=== PATIENT | female | born 1955 | race Caucasian/White ===

== ENCOUNTER 2022-01-24 13:13 | Outpatient (CLI) | payer MEDICARE, BC, SELFPAY ==
--- OUTSIDE RECORDS SUMMARY | 2021-12-21 09:51 | XMS_ITS | Continuity of Care Document ---
:1955 Author Care Team Providers Name Role Phone MD Aubrie Hagan Primary Care Physician MD Ritesh P Attending Physician Allergies, Adverse Reactions, Alerts No known allergies Social History Smoking Status Status Start Date End Date Date of Observat ion Never smoked tobacco October 22, 2021 8:00am (finding) Additional Data Assigned Sex Female Problems Active Problems Medical Problem Onset Date Status Essential hypertension 2013 Active Gastroesophageal reflux 2016 Active Mitral valve prolapse Active Hyperlipidemia 2014 Active Pre-diabetes 2014 Active Osteoporosis December 05, 2016 Active Encounter for screening for COVID-19 Act macrina History of colonoscopy Active History of total knee replacement 2020 Resol ed Medications Medication Status Dose Units Route Directions Qty Days Start End Ins tructions Date Date Alendronate Active 70 MG PO Every 7 09 October Sodium Days 2021 8:20am Calcium Active 1 TAB PO Daily Citrate-Vitam in D (Citracal + D3 Maximum 315-250 Mg-Unit) 1 Tab TAB Cephalexin Active 500 MG PO Twice A Day December 11, 2021 1:00pm Clonidine Hcl Active 0.1 MG PO Daily October 22, 2021 8:20am Multiple Active 1 2 OR Twice A Day Vitamins W/ Minerals (Preservision Areds 2) Areds 2 CAP Simvastatin Active 20 MG PO Bedtime October 22, 2021 8:20am Alendronate Discontin 70 MG PO Every 7 September Sodium ued Days y 2020 8:21am 8:20am Alendronate Discontin 70 MG PO Every 7 June Sodium ued Days 2019, 8:24am 2020 8:21am Alendronate Discontin 70 MG PO Every 7 Marchr Sodium ued Days , y 2018, 11:27am 2019 8:24am Alendronate Discontin 70 MG PO Every 7 10 April Octobe Sodium ued Days 2nd, r 2017, 2:16pm 2018 11:27a m Alendronate Discontin 70 MG PO Every 7 12 Octobe Sodium ued Days er r , 2017 2:16pm 12:20pm Alendronate Discontin 70 MG PO Every 7 Septem Sodium ued Days er 6th, mauricio 2017, 9:30am 2017 12:20p m Alendronate Discontin 70 MG PO Every 7 Januaryem Sodium ued Days , 2016, 1:35pm 2016 4:46pm Amlodipine Discontin 10 MG PO Daily August Besylate ued , (Norvas) 10 2013 2014 Mg TAB 5:26pm 10:11a m Amlodipine Discontin 5 MG PO Daily August Besylate ued y , (Norvas) 5 2013 2014 Mg TAB 10:31am 5:26pm Amoxicillin Discontin 875 MG PO Twice Daily October st ued For 10 Days , 2016 5:15pm 1:03pm Amoxicillin Discontin 2000 MG PO Once 1 H R PRIOR TO ued y APPT 2013 1:19pm Aspirin Discontin 81 MG PO Daily ued y 2019 7:58am Calcium Discontin 950 MG OR Octobe Citrate ued r , (Calcitrate) 2017 950 Mg TAB 1:01pm Calcium Discontin 2 TAB PO Daily September Citrate/Carly ued , calciferol 2021 (Calcium 8:42am Citrate/Vitam in D) 200 Mg/250 Unit TAB Cephalexin Discontin 500 MG PO Twice A Day October ued , 2021 9:53am 1:00pm Clonidine Hcl Discontin 0.1 MG PO Daily September ued y , 2020 8:21am 8:20am Clonidine Hcl Discontin 0.1 MG PO Daily June ued , 2019, 8:24am 2020 8:21am Clonidine Hcl Discontin 0.1 MG PO Daily June ued , y 2019 14, 9:24am 2019 8:24am Clonidine Hcl Discontin 0.1 MG PO Daily March ued 2018, 4:37pm 2019 9:24am Clonidine Hcl Discontin 0.1 MG PO Daily March ued , r 2017 10th, 2:16pm 2018 4:37pm Clonidine Hcl Discontin 0.1 MG PO Daily January ued , 2016 1:35pm 2:16pm Clonidine Hcl Discontin 0.1 MG PO Daily November ued , 2016 4:02pm 1:35pm Clonidine Hcl Discontin 0.1 MG PO Daily October ued 2015 2:32pm 4:02pm Clonidine Hcl Discontin 0.1 MG PO Daily October Pt will be due for medication follow up prior to next ued , refill. 2015 2015 8:17am 2:32pm Clonidine Hcl Discontin 0.1 MG PO Daily August Pt will be due for medication follow up prior to next ued , refill. 2015 2015 8:49am 8:17am Clonidine Hcl Discontin 0.1 MG PO Daily December ued 2014 12:31pm 8:49am Clonidine Hcl Discontin 0.1 MG PO Daily September ued 2014 11:24am 12:31p m Clonidine Hcl Discontin 0.1 MG PO Daily August ued 2014 9:14am 11:24a m Clonidine Hcl Discontin 0.1 MG PO Daily August ued y 2014 8:38am 9:14am Clonidine Hcl Discontin 0.1 MG PO Daily January ued 2013, 11:30am 2014 8:38am Clonidine Hcl Discontin 0.1 MG PO Daily October ued 2013 5:00pm 11:30a m Clonidine Hcl Discontin 0.1 MG PO Twice A Day August y ued , 2013 10:30am 5:00pm Diphtheria/Te Discontin 0.5 ML IM Once October tanus/Acell ued , Pertussis 2015 2015 (Adacel) 0.5 2:06pm 2:42pm Ml INJ Glucosamine Discontin 2 TBS Daily August ued 2015 9:17am Hctz/Lisinopr Discontin 1 TAB PO Daily June il ued , (Lisinopril/H 2014 05, ctz) 20 Mg/25 1:50pm 2014 Mg TAB 10:12a m Ibandronate Discontin 150 MG PO Every 30 e Sodium ued Days er 5th, r 2nd, (Boniva) 150 2016 2018 Mg TAB 4:46pm 1:01pm Influenza Discontin 0.5 ML IM Once March Virus Vaccine ued , r (Fluzone 2018 05, Quadrivalent 12:41pm 2018 (3 Yrs And 12:43p Older)2018- m ) 1 Inj INJ Influenza Discontin 0.5 ML IM Once Virus Vaccine ued r 1st, er Split 2019 , (Fluzone 2:08pm 2019 High-Dose Pf 2:09pm 2018 0.5 Ml) 1 Inj INJ Multiple Discontin 1 TAB PO Daily Vitamins W/ ued y Minerals , (Centrum 2020 Silver 7:58am 50+Women) 1 Tab TAB Omeprazole Discontin 20 MG PO Daily December (Prilosec) 20 ued , Mg CAP 2017 8:28am Pneumococcal Discontin 0.5 ML IM Once September Polyvalent ued , , Vaccine 2020 2020 (Pneumovax 3:01pm 3:27pm 23) 25 Mcg/0.5 Ml INJ Pneumococcal Discontin 0.5 ML IM Once June Polyvalent ued , y Vaccine 2019, (Prevnar 13) 8:24am 2019 0.5 Ml INJ 8:56am Prednisone Discontin 20 MG PO Twice A Day October t ued , , 2016 2016 5:15pm 1:03pm Simvastatin Discontin 20 MG PO Bedtime September ued , , 2021 2021 10:59am 8:20am Simvastatin Discontin 20 MG PO Bedtime September ued y , 2020 8:21am 10:59a m Simvastatin Discontin 20 MG PO Bedtime June ued , ry 2019, 11:49am 2020 8:21am Simvastatin Discontin 20 MG PO Bedtime June ued , y 2019, 8:24am 2019 11:49a m Simvastatin Discontin 20 MG PO Bedtime March ued , y 2018, 11:27am 2019 8:24am Simvastatin Discontin 20 MG PO Bedtime March ued , r 2017, 2:16pm 2018 11:27a m Simvastatin Discontin 20 MG PO Bedtime January ued , r , 2016 2017 1:35pm 2:16pm Simvastatin Discontin 20 MG PO Bedtime October ued , , 2015 2016 2:30pm 1:35pm Simvastatin Discontin 20 MG PO Bedtime September ued , , 2014 2015 11:24am 2:30pm Simvastatin Discontin 20 MG PO Bedtime October ued , , 2013 2014 1:08pm 11:24a m Simvastatin Discontin 20 MG PO Bedtime October ued y , 2013 10:31am 1:08pm Triamcinolone Discontin 1 UMESH TOP Twice A Day 15 ua apply to itchy skin twice daily as needed for up to ten Acetonide ued r , ry days; di scontinue three days and may repeat if persists (Triamcinolon 2017, e Acetonide 1:19pm 2020 (Cream)) 0.1 7:55am % CRE Triamcinolone Discontin 1 UMESH TOP Twice A Day 15 06 January Oc jaime Acetonide ued , r 2nd, (Cream) 2017 2017 8:40am 1:18pm Triamcinolone Discontin 1 UMESH TOP 3XDAILY Decemberua APPLY TO Acetonide ued , ry AFFECTED A MICHI (Ointment) 2019, until 4:56pm 2020 improved, do 8:21am not use on face Zostavax Discontin 0.65 ML SUBQ Once September ued , , 2014 2014 11:34am 11:43a m Immunizations Immunization Event Date Not Given Dose Passenger Brakeman Lot Vac cine Reason Number Number Informatio n Statement (VIS) Deta il COVID-19 Moderna July [id number] COVID-19 Moderna September 20, 2020 COVID-19 Moderna May [id number] COVID-19 Moderna November 02, 2021 Herpes Zoster September 30 MERCK [id number] 2014 Influenza March 30 SANOFI [id number] 2017 Influenza May 01 SANOFI [id number] 2018 Influenza April 01 [id number] 2019 Influenza April 02 [id number] 2020 Prevnar Adult June 30 WYETH [id number] 2019 Pneumovax Adult October 26 MERCK [id number] 2020 Shingrix February 122018 Shingrix March 312018 Tetanus/Diptheri July 31 a 2005 Tetanus/Diptheri November 16, 2 a 2015 Tdap November 16, 2 SANOFI (adolescent/adul 2016 t) Procedures Procedure Date Performed Status Screening colonoscopy December 18, 2021 completed Relevant Diagnostic Tests and/or Laboratory Data Laboratory Results Test Date/Time Result Interpretation Reference Result Perfo rming Site Range Comment Coronavirus December 17, NEGATIVE NEGATIVE The 2018 [facility] (COVID-19)(P 2021 SARS-CoV- novel 1999 [facility] CR) 9:26am 2 coronavirus [facility] [address] (SARS-CoV-2) target nucleic acids are not detected by RT-PCR. This result does not rule out SARS-CoV-2 in the patient, as the sensitivity of the test depends on timing of the specimen collection and quality of the specimen. Results should be correlated with the patient's history and clinical presentation . Pathology December 18, SEE REF [facility] Lab Specimen 2021 PATH SCAN 1999 [facility] Result 9:50am [facility] [id number] Diagnostic Imaging Reports Report Dictated Date/Time Dictated By Status March 11, 2017 Sakshi Hagan MD acti ve 5:14pm [facility] [address] [place] [address] ~DISCHARG E SUMMARY~ Patient: CHANDRIKA MORAN MR #: [id number] : 1955 Age: 62 Sex: F MD: Sakshi Hagan MD Report #: [id number] Loc: NIM afmargarita March 11, 2017 [facility] [address] [address] Dear Chandrika: I hope this letter finds you well. It w as such a pleasure to see you at your recent physical. Your recent heart ultra sound/echocardiogram looks good. You have normal heart function and size. Yo u do have mild mitral regurgitation which is why I wanted to check. This is felt to be mild, and it looks pretty good. Mild mitral regurgitation should be checked by a surveillance ultrasound typically every 3-5 years, and we will c ertainly keep that in mind, but things look good and no further testing is need ed. Very sincerely yours, Sakshi Hagan MD Internal Medicine [facility]:cb Dictated By: Sakshi Hagan MD Signed By: Vital Signs Vital Reading Result Reference Range Collection Date/ Time Height 0 [in_i] November 20, 2021 9 :58am Body Temperature 97.8 [degF] November 20, 2021 9:58am Body Temperature 36.56 Kylie November 20, 2021 9:58am Advance Directives Advance Directive Response Recorded Date/Time Has patient completed a No October 22, 2021 8:00am Health Care Directive? Insurance Providers Guarantor Chandrika Moran Address [address] [place] [id number] Contact Info. Home Phone: Payer Policy Id Coverage Id Subscriber's Subscriber Id Effective E xpiration Name Date Date Medicare [id number] UshapatricKamrann December 28, 16 R 2018 [employer] [id number] Chandrika Moran [place] [id number] R Encounters Encounter Location(s) Arrival/Admit Date Discharge/Depart Date Provider(s) Registered [facility] December 18, 2021 Christen Awad [facility] 8:54am Registered [facility] December 17, 2021 null Practice 9:30am Office Visit [facility] December 17, 2021 [facility], Internal 9:30am Sakshi Alfred MD Medicine Registered [facility] December 17, 2021 [facility] 9:25am Sakshi Alfred MD Office Visit Dermatology @ November 20, 2021 Michael Mcdaniel 9:30am Fanny Freeman MD
--- NOTE | 2022-01-24 13:20 | CRLHL7_ITS ---
For Patients: As a result of the Century Cures Act, medical imaging exams and procedure reports are released immediately into your electronic medical record. You may view this report before your referring provider. If you have questions, please contact your health care provider. BILATERAL SCREENING MAMMOGRAM WITH COMPUTER-AIDED DETECTION AND TOMOSYNTHESIS TECHNIQUE: CC and MLO views were obtained. These mammographic images have been obtained using full-field digital technique. These mammographic images were interpreted with the benefit of computer-aided detection. Breast Tomosynthesis was used in this interpretation. COMPARISON FILM: 08/10/20, 04/19/19, 12/05/16. FINDINGS: The breasts are heterogeneously dense, which may obscure small masses IMPRESSION: There is no radiographic evidence for malignancy. ASSESSMENT: BI-RADS Category 1: Negative RECOMMENDATION: Routine screening mammogram in 1 year. A lay language report of this examination will be provided to the patient. Fredrick Bourgeois M.D. Diagnostic Radiologist [email or web address] NAVID/Dictated by: Fredrick Bourgeois MD @ 01/29/2022 12:01:00 PM (Electronically Signed)
== END 2022-01-24 13:14 | disposition home or self-care (01) ==
LOC: MAMMO 13:15
PROVIDERS: PCP Internal Medicine; Visit Provider Internal Medicine
DX: Z12.31 Encounter for screening mammogram for malignant neoplasm of breast (principal)
CPT/HCPCS: 77063; 77067

== ENCOUNTER 2022-12-27 09:19 | Outpatient (CLI) | payer MEDICARE, BC, SELFPAY | END 2022-12-27 09:20 | disposition home or self-care (01) | LOC: NFLDREF 12-28 09:42 | PROVIDERS: PCP Internal Medicine; Referring Provider Internal Medicine; Visit Provider Internal Medicine | DX: M81.0 Age-related osteoporosis without current pathological fracture (principal); E78.5 Hyperlipidemia, unspecified; R73.03 Prediabetes | CPT/HCPCS: 80061; 82306; 82947 ==

== ENCOUNTER 2023-02-13 10:00 | Outpatient (CLI) | payer MEDICARE, BC, SELFPAY ==
--- NOTE | 2023-02-13 10:15 | CRLHL7_ITS ---
For Patients: As a result of the Century Cures Act, medical imaging exams and procedure reports are released immediately into your electronic medical record. You may view this report before your referring provider. If you have questions, please contact your health care provider. BILATERAL SCREENING MAMMOGRAM WITH COMPUTER-AIDED DETECTION AND TOMOSYNTHESIS TECHNIQUE: CC and MLO views were obtained. These mammographic images have been obtained using full-field digital technique. These mammographic images were interpreted with the benefit of computer-aided detection. Breast Tomosynthesis was used in this interpretation. COMPARISON FILM: 01/24/22, 08/10/20, 04/19/19. FINDINGS: The breasts are heterogeneously dense, which may obscure small masses IMPRESSION: There is no radiographic evidence for malignancy. ASSESSMENT: BI-RADS Category 1: Negative RECOMMENDATION: Routine screening mammogram in 1 year. A lay language report of this examination will be provided to the patient. Fredrick Bourgeois M.D. Diagnostic Radiologist [email or web address] NAVID/Dictated by: Fredrick Bourgeois MD @ 02/13/2023 12:08:00 PM (Electronically Signed)
== END 2023-02-13 10:01 | disposition home or self-care (01) ==
LOC: MAMMO 10:01
PROVIDERS: PCP Internal Medicine; Visit Provider Internal Medicine
DX: Z12.31 Encounter for screening mammogram for malignant neoplasm of breast (principal); R92.2 Inconclusive mammogram
CPT/HCPCS: 77063; 77067

== ENCOUNTER 2023-09-18 11:25 | Outpatient (CLI) | payer MEDICARE, BC, SELFPAY | END 2023-09-18 11:26 | disposition home or self-care (01) | PROVIDERS: PCP Internal Medicine; Visit Provider Dermatology | DX: E83.52 Hypercalcemia (principal); E83.59 Other disorders of calcium metabolism; Z13.29 Encounter for screening for other suspected endocrine disorder | CPT/HCPCS: 82310; 83970 ==

== ENCOUNTER 2023-12-31 07:55 | Outpatient (CLI) | payer MEDICARE, BC, SELFPAY ==
--- OUTSIDE RECORDS SUMMARY | 2024-01-03 10:24 | XMS_ITS | Encounter Summary ---
Author Organization [facility] Address [address] [place] [address] Care Team Providers Care Customer Relations Specialist Name Role Phone Elsewhere, Pcp Primary Care Provider Unavailabl e Encounter Details Date Type Department Care Team (Late st Contact Info) Description 11/05/2023 [facility] [address] [place] [address] Sakshi Hagan M.D. [address] [place] [address] Social History Tobacco Use Types Packs/Day Years Used Date Smoking Tobacco: Never Smokeless Tobacco: Never Alcohol Use Standard Drinks/Week Comments Yes 5 (1 standard drink = 0.6 oz pure alcohol) usually a glass of wine with dinner Humiliation, Afraid, Rape, and Kick questionnair e Answer Date Recorded Within the last year, have y ou been afraid of your partner or ex-partner? No 07/13/2021 Within the last year, have y ou been humiliated or emotionally abused in other ways by your partner or ex-partner? No Within the last year, have y ou been kicked, hit, slapped, or otherwise physically hurt by your partner or ex-partner? No 07/13/2021 Within the last year, have y ou been raped or forced to have any kind of sexual activity by your partner or ex-partner? No 07/13/2021 Social Connection and Isolat ion Panel [NHANES] Answer Date Recorded In a typical week, how many times do you talk on the phone with family, friends, or neighbors? More than three times a week 07/13/2021 How often do you get togethe r with friends or relatives? Twice a week 07/13/2021 How often do you attend chur or taoism services? 1 to 4 times per year 07/13/2021 Do you belong to any clubs o r organizations such as orthodoxy groups, unions, fraternal or athletic groups, or school groups? Yes 07/13/2021 How often do you attend meet ings of the clubs or organizations you belong to? 1 to 4 times per year 07/13/2021 Are you , , di vorced, , never , or living with a partner? Living with partner 07/13/2021 AUDIT-C Answer Date Recorded Q1: How often do you have a drink containing alc ohol? 2-3 times a week 07/13/2021 Q2: How many drinks containi ng alcohol do you have on a typical day when you are drinking? 1 or 2 07/13/2021 Q3: How often do you have si x or more drinks on one occasion? Never 07/13/2021 Overall Financial Resource Strain (CARDIA) Answe r Date Recorded How hard is it for you to pa y for the very basics like food, housing, medical care, and heating? Not hard at all 03/14/2023 [facility] - Occupational Stress Questionnaire Answer Date Recorded Do you feel stress - tense, restless, nervous, or anxious, or unable to sleep at night because your mind is troubled all the time - these days? Not at all 07/13/2021 Exercise Vital Sign Answer Date Recorde d On average, how many days pe r week do you engage in moderate to strenuous exercise (like a brisk walk)? 4 days 03/14/2023 On average, how many minutes do you engage in exercise at this level? 30 min 03/14/2023 Hunger Vital Sign Answer Date Recorded Within the past 12 months, y ou worried that your food would run out before you got the money to buy more. Never true 03/14/20 23 Within the past 12 months, t he food you bought just didn't last and you didn't have money to get more. Never true 03/14/2023 PRAPARE - Transportation Answer Date Re corded In the past 12 months, has l ack of transportation kept you from medical appointments or from getting medications? No 02/28 In the past 12 months, has l ack of transportation kept you from meetings, work, or from getting things needed for daily living? No 03/14/2023 Nutrition Answer Date Recorded Nutrition: EVOO Fat Source Yes 03/14 On average, how many serving s of fruits and vegetables do you eat per day (serving size is equal to 1 cup or approximately the size of a tennis ball)? 0-2 03/14/2023 Dental Answer Date Recorded Dental: Regular Dentist Yes 09/13/19 Employment Answer Date Recorded Employment status Retired 03/14/2023 Housing Stability Answer Date Recorded What is your living situation today? I have a [facility] place to live 03/14/2023 Education Answer Date Recorded What is the highest level of school you have completed or the highest degree you have received? Bachelor's degree (e.g., BA, AB, BS) 09/12/2020 Sex and Gender Information Value Date Recorded Sex Assigned at Female 03/31/2021 9:09 AM CDT Gender Identity Female 03/31/2021 9:09 AM CDT Sexual Orientation Straight 03/31/2021 9: 09 AM CDT documented as of this encounter Plan of Treatment Not on file documented as of this encounter Visit Diagnoses Not on filedocumented in this encounter Care Teams Customer Relations Specialist Relationship Specialty Start Date End Date Elsewhere, Pcp PCP - General Family Medicine 12/18/20 documented as of this encounter
--- OUTSIDE RECORDS SUMMARY | 2024-01-03 10:24 | XMS_ITS | Clinical Summary ---
Author Organization [facility] Address [address] [place] [address] Care Team Providers Care Napping Machine Operator Name Role Phone Elsewhere, Pcp Primary Care Provider Unavailabl e Source Comments Patient records contain information from all sites at [facility]. For routine questions regarding patient records, call [phone] during business hours, M-F 8:00 AM - 5:00 PM Central Time. Record requests for emergency care only can be directed to [phone] at any time.[facility] Allergies No known active allergies Medications Medication Sig Dispensed Refills Start Date End Date Status simvastatin (ZOCOR) 20 mg tablet Take 1 tablet by mouth at bedtime. 03/26/2017 Active cloNIDine (CATAPRES) 0.1 mg tablet Take 1 tablet by mouth every morning. 03/26/2017 Active alendronate (FOSAMAX) 70 mg tablet Take 1 tablet by mouth every 7 (seven) days. Takes on Friday08/14/2020 Active aspirin (ASPIR-81 ORAL) Take 1 tablet by mouth 2 (two) times a day. Take for one week before knee surgery and for six weeks after until 05/24/21. 03/26/2017 Active calcium citrate (CALCITRATE) 950 mg (200 mg calcium) tablet Take 400 mg of calcium by mouth every morning. 10/28/2016 Active vitamins A,C,G-ebes-qxzfyq (PRESERVISION AREDS) 7,160 Units-113 mg-100 Units per tablet Take 1 tablet by mouth 2 (two) times a day. Active ibuprofen (ADVIL,MOTRIN) 200 mg tablet Take 400 mg by mouth every 6 (six) hours as needed for pain. Active acetaminophen (TYLENOL) 500 mg tablet Take 2 tablets (1,000 mg total) by mouth every 8 (eight) hours as needed for pain. 04/12/2021 Active sennosides-docusate sodium (Senna with Docusate Sodium) 8.6-50 mg per tablet Take 1 tablet by mouth 2 (two) times a day. 04/12/2021 Active Active Problems Problem Noted Date Diagnosed Date Aftercare Total Knee Arthroplasty 06/27/2021 Arthritis Knee Left 02/01/2021 Overview: Added automatically from request for surgery [id number] Hypertension Essential Primary 12/19/2020 Hyperlipidemia 12/19/2020 Murmur Heart 12/19/2020 Osteoporosis 12/19/2020 Preoperative Exam 10/16/2020 Overview: Added automatically from request for surgery [id number] Pain Knee Bilateral 10/16/2020 Overview: Added automatically from request for surgery [id number] Encounter For Preprocedural Laboratory Examination (COVID-19) 10/16/2020 Overview: Added automatically from request for surgery [id number] Contact With And (Suspected) Exposure To COVID-1 9 10/16/2020 Overview: Added automatically from request for surgery [id number] Primary Osteoarthritis Knee Bilateral 03/26/2017 Resolved Problems Problem Noted Date Diagnosed Date Resolved Date Mitral Valve Prolapse 12/19/20202020 Encounter For Preprocedural Laboratory Examination (COVID-19) 10/16/2020 12/19/2020 Overview: Added automatically from request for surgery [id number] Contact With And (Suspected) Exposure To COVID-19 10/16/2020 12/19/2020 Overview: Added automatically from request for surgery [id number] Pain Knee Bilateral 02/06/2017 12/20/19 21 Encounters Date Type Department Care Team Description 11/05/2023 [facility] [address] [place] [address] Sakshi Hagan M.D. 10/17/2023 [facility] [address] [place] [address] Sakshi Hagan M.D. Other Disorders Of Calcium Metabolism (Primary Dx) 10/06/2023 [facility] [address] [place] [address] Fanny Mcdaniel M.D. Hypercalcemia (Primary Dx) from Last 3 Months Immunizations Name Administration Dates Next Due Influenza high dose QV(65 years or older) (PF) 1 Family History Medical History Relation Name Comments Breast cancer Maternal Grandmother Kimber Vincent Colon cancer Mother Ashlie Kinney Osteoporosis Mother Ashlie Kinney Hyperlipidemia Sister Valerie Martinez Hypertension Sister Valerie Martinez Relation Name Status Comments Maternal Grandmother Kimber Vincent Mother Ashlie Kinney Sister Valerie Martinez Social History Tobacco Use Types Packs/Day Years [...] 07/13/2021 How often do you attend chur ch or jehovah's witness services? 1 to 4 times per year 07/13/2021 Do you belong to any clubs o r organizations such as buddhism groups, unions, fraternal or athletic groups, or [...] and heating? Not hard at all 03/14/2023 [facility] - Occupational Stress [...] Date Recorded Dental: Regular Dentist Yes 09/13/19 21 Employment Answer Date Recorded Employment status Retired 03/14/2023 Housing Stability Answer Date Recorded What is your living situation today? I have a [facility] place to live 03/14/2023 Education Answer Date Recorded What is the highest level of school you have completed or the highest degree you have received? Bachelor's degree (e.g., BA, AB, BS) 09/12/2020 Sex and Gender Information Value Date Recorded Sex Assigned at Female 03/31/2021 9:09 AM CDT Gender Identity Female 03/31/2021 9:09 AM CDT Sexual Orientation Straight 03/31/2021 9: 09 AM CDT Last Filed Vital Signs Vital Sign Reading Time Taken Comments Blood Pressure 124/61 04/13/2021 10:43 AM CDT Pulse 63 04/13/2021 10:43 AM CDT Temperature 36.7 ??C (98.1 ??F) 04/13/2021 10:43 AM C DT Respiratory Rate 15 04/13/2021 10:43 AM CDT Oxygen Saturation 98% 04/13/2021 10:43 AM CDT Inhaled Oxygen Concentration - - Weight 86.2 kg (190 lb) 03/17/2023 10:32 AM CDT Height 172.7 cm (5' 8) 03/17/2023 10:32 AM CDT Body Mass Index 28.89 03/17/2023 10:32 AM CDT Plan of Treatment Health Maintenance Due Date Last Done Comments CT Colonography 1954 Cologuard 1954 Colonoscopy 1954 Colorectal Cancer Surveillance 1954 Fasting Glucose for Diabetes Screening 1954 Hepatitis C Screening 1954 Lipid (Cholesterol) Screening 1954 Mammogram 1954 Office Visit for Blood Press ure Check / Re-check 1954 Depression Screening (Annual PHQ-2) 06/30/2023 Fall Risk Screen (Annual) 06/30/2023 COVID-19 Vaccine (2022-2 4 season) 2023 05/11/2023, 02/12/2023, 03/29/2022, Additional history exists Influenza Vaccine (#1) 2024 , 05/20/2022, 04/13/2021, Additional history exists DTaP,Tdap,and Td Vaccines (2 - Td or Tdap) 11/16/2025 11/17/2015, 08/08/2005 Zoster Vaccines Completed 04/13/2019, 01/28, 09/30/2014 Pneumococcal vaccine (65+ years) Completed 10/27/19, 07/13/2019 Medical Devices Implanted Type Area Schedule Announcer Device Identifier Shelf Expiration Date Model / Serial / Lot Cmnt Bn Full Dose 40gm Simplex - [id number] Implanted:Qty : 1 on 12/21/2020 by Matthew Wright M.D. at [facility] Bone Cement Right: Knee Marilee 01/27/2022 6191 1 / / [id number] Cmnt Bn Half Dose 20gm Simplex - [id number] Implanted:Qty : 1 on 12/21/2020 by Matthew Wright M.D. at [facility] Bone Cement Right: Knee Marilee 06/29/2022 6188- 1 / / [id number] Cmnt Bn Smp 20gm - [id number] Implanted:Qty : 1 on 04/12/2021 by Matthew Wright M.D. at [facility] Bone Cement Left: Knee [place] 6188- 1 / / Cmnt Bn Smp 40gm - [id number] Implanted:Qty : 1 on 04/12/2021 by Matthew Wright M.D. at [facility] Bone Cement Left: Knee [place] 6191- 1 / / Ibalance Tka, Femoral Implant, Ps, Cemented, Right Implanted:Qty : 1 on 12/21/2020 by Matthew Wright M.D. at [facility] Knee Implant Right: Knee Arthrex 01/28/2024 AR-526-6R / / [id number] Ibalance Tka, Tibial Tray, Modular Implanted:Qty : 1 on 12/21/2020 by Matthew Wright M.D. at [facility] Knee Implant Right: Knee Arthrex 05/29/2025 AR-513-T4 / / [id number] Ibalance Tka, Tibial Bearing Implant, Ps, Vit E Implanted:Qty : 1 on 12/21/2020 by Matthew Wright M.D. at [facility] K[facility] Implant Right: Knee Arthrex 12/27/2024 AR-523-B4 10 / / [id number] Ibalance Tibial Insert Ps Vit. E Sz 5 9mm Implanted:Qty : 1 on 04/12/2021 by Matthew Wright M.D. at [facility] Knee Implant Left: Knee Arthrex [id number] 11/27/2024 AR-523-B5 09 / / [id number] Ibalance Femur Ps Sz 7 Left Implanted:Qty : 1 on 04/12/2021 by Matthew Wright M.D. at [facility] Knee Implant Left: Knee Arthrex [id number] 04/29/2024 AR-526-7L / / [id number] Ibalance Tibial Tray Modular Sz 5 Implanted:Qty : 1 on 04/12/2021 by Matthew Wright M.D. at [facility] Knee Implant Left: Knee Arthrex [id number] AR-513-T5 / / Advance Directives For more information, please contact: [phone] * Full Code (Latest Code Status on File) Date Activated Date Inactivated Comments 04/12/2021 1:12 PM 04/13/2021 1:32 PM Question Answer Comments Full Code: Discussed * Full Code Date Activated Date Inactivated Comments 12/21/2020 3:06 PM 12/22/2020 3:11 PM Question Answer Comments Full Code: Discussed Care Teams Napping Machine Operator Relationship Specialty Start Date End Date Elsewhere, Pcp PCP - General Family Medicine 12/18/20
--- OUTSIDE RECORDS SUMMARY | 2024-01-03 10:24 | XMS_ITS ---
Author Organization [facility] Address [address] [place] [address] Care Team Providers Care Bobbin Drier Name Role Phone Unavailable Unavailable Unavailable Surgery Details Not on file Complications Check Surgery Details section. Procedure Estimated Blood Loss Check Surgery Details section. Procedure Findings Check Surgery Details section. Procedure Specimens Taken Check Surgery Details section.
--- OUTSIDE RECORDS SUMMARY | 2024-01-03 10:24 | XMS_ITS | Encounter Summary ---
Author Organization [facility] Address [address] [place] [address] Care Team Providers Care Cleaner And Preparer Name Role Phone Elsewhere, Pcp Primary Care Provider Unavailabl e Reason for Referral * Outpatient (Routine) - Authorized Specialty Diagnoses / Procedures Referred By Josh t Referred To Contact Endocrinology Diagnoses Hypercalcemia Fanny Mcdaniel M.D. [address] [place] [address] [facility] Referral ID Status Reason Start Date Expiration Date V isits Requested Visits Authorized [id number] Authorized 10/06/2023 04/06/2025 1 1 Encounter Details Date Type Department Care Team (Late st Contact Info) Description 10/06/2023 [facility] [address] [place] [address] Fanny Mcdaniel M.D. [address] [place] [address] Hypercalcemia (Primary Dx) Social History Tobacco Use Types Packs/Day Years [...] How often do you attend chur or jehovah's witness services? 1 to 4 times per year 07/13/2021 Do you belong to any clubs o r organizations such as adventism groups, unions, fraternal or athletic groups, or [...] and heating? Not hard at all 03/14/2023 [facility] Occupat ional Health [...] your living situation today? I have a [facility] place to live 03/14/2023 Education Answer [...] as of this encounter Plan of Treatment Scheduled Referrals Name Type Priority Associated Diagnoses Order Schedule Rheumatology Referral Outpatient Referral Routine Hypercalcemia Expected: 10/06/2023 (Approximate), Expires: 01/04/2025 documented as of this encounter Visit Diagnoses Diagnosis Hypercalcemia- Primary documented in this encounter Care Teams Cleaner And Preparer Relationship Specialty Start Date End Date Elsewhere, Pcp PCP - General Family Medicine 12/18/20 documented as of this encounter
--- OUTSIDE RECORDS SUMMARY | 2024-01-03 10:24 | XMS_ITS | Referral Summary ---
Author Organization [facility] Address [address] [place] [address] Care Team Providers Care Configuration Management Manager Name Role Phone Elsewhere, Pcp Primary Care Provider Unavailabl e Source Comments Patient records contain information from all sites at [facility]. For routine questions regarding patient records, call [phone] during business hours, M-F 8:00 AM - 5:00 PM Central Time. Record requests for emergency care only can be directed to [phone] at any time.[facility] Encounters Date Type Department Care Team Description 11/05/2023 [facility] [address] [place] [address] Sakshi Hagan M.D. 10/17/2023 [facility] [address] [place] [address] aSkshi Hagan M.D. Other Disorders Of Calcium Metabolism (Primary Dx) 10/06/2023 [facility] [address] [place] [address] Fanny Mcdaniel M.D. Hypercalcemia (Primary Dx) from Last 3 Months Allergies No known active allergies Medications Medication [...] by mouth every morning. 10/28/2016 Active vitamins A,C,K-kdfe-dbxyhb (PRESERVISION AREDS) 7,160 Units-113 mg-100 Units per [...] Overview: Added automatically from request for surgery [id number] Hypertension Essential Primary 12/19/2020 Hyperlipidemia 12/19/2020 Murmur Heart 12/19/2020 Osteoporosis 12/19/2020 Preoperative Exam 10/16/2020 Overview: Added automatically from request for surgery [id number] Pain Knee Bilateral 10/16/2020 Overview: Added automatically from request for surgery [id number] Encounter For Preprocedural Laboratory Examination (COVID-19) 10/16/2020 Overview: Added automatically from request for surgery [id number] Contact With And (Suspected) Exposure To COVID-1 9 10/16/2020 Overview: Added automatically from request for surgery [id number] Primary Osteoarthritis Knee Bilateral 03/26/2017 Resolved Problems Problem Noted Date Diagnosed Date Resolved Date Mitral Valve Prolapse 12/19/20201 Encounter For Preprocedural Laboratory Examination (COVID-19) 10/16/2020 12/19/2020 Overview: Added automatically from request for surgery [id number] Contact With And (Suspected) Exposure To COVID-19 10/16/2020 12/19/2020 Overview: Added automatically from request for surgery [id number] Pain Knee Bilateral 02/06/2017 12/20/19 21 Immunizations Name Administration Dates Next Due Influenza high dose QV(65 years or older) (PF) 1 Social History Tobacco Use Types Packs/Day Years [...] often do you attend chur ch or restorationism services? 1 to 4 times per year 07/13/2021 Do you belong to any clubs o r organizations such as caodaism groups, unions, fraternal or athletic groups, or [...] and heating? Not hard at all 03/14/2023 [facility] of Occupat ional Health - Occupational Stress [...] your living situation today? I have a [facility] place to live 03/14/2023 Education Answer Date [...] 03/17/2023 10:32 AM CDT Plan of Treatment Not on file Medical Devices Implanted Type Area Cigar Head Pegger Device Identifier Shelf Expiration Date Model / Serial / Lot Cmnt Bn Full Dose 40gm Simplex - [id number] Implanted:Qty : 1 on 12/21/2020 by Matthew Wright M.D. at [facility] [employer] Bone [employer]ement Right: Knee [place] 01/27/2022 [id number] / / [id number] Cmnt Bn Half Dose 20gm Simplex - [id number] Implanted:Qty : 1 on 12/21/2020 by Matthew Wright M.D. at [facility] [employer] Right: Knee [place] 06/29/2022 6188 1 / / [id number] Cmnt Bn Smp 20gm - [id number] Implanted:Qty : 1 on 04/12/2021 by Matthew Wright M.D. at [facility] Bone Cement Left: Knee [place] 6188- 1 / / Cmnt Bn Smp 40gm - [id number] Implanted:Qty : 1 on 04/12/2021 by Matthew Wright M.D. at [facility] Bone Cement Left: Knee [place] 6191 1 / / Ibalance Tka, Femoral Implant, Ps, Cemented, Right Implanted:Qty : 1 on 12/21/2020 by Matthew Wright M.D. at [facility] Knee Implant Right: Knee Arthrex 01/28/2024 AR-526-6R / / [id number] Ibalance Tka, Tibial Tray, Modular Implanted:Qty : 1 on 12/21/2020 by Matthew Wright M.D. at [facility] Knee Implant Right: Knee Arthrex 05/29/2025 AR-513-T4 / / [id number] Ibalance Tka, Tibial Bearing Implant, Ps, Vit E Implanted:Qty : 1 on 12/21/2020 by Matthew Wright M.D. at [facility] Knee Implant Right: Knee Arthrex 12/27/2024 AR-523-B4 10 / / [id number] Ibalance Tibial Insert Ps Vit. E Sz 5 9mm Implanted:Qty : 1 on 04/12/2021 by Matthew Wright M.D. at [facility] Knee Implant Left: Knee Arthrex [id number] 11/27/2024 AR-523-B5 09 / / [id number] Ibalance Femur Ps Sz 7 Left Implanted:Qty : 1 on 04/12/2021 by Matthew Wright M.D. at [facility] Knee Implant Left: Knee Arthrex [id number] 04/29/2024 AR-526-7L / / [id number] Ibalance Tibial Tray Modular Sz 5 Implanted:Qty : 1 on 04/12/2021 by Matthew Wright M.D. at [facility] Knee Implant Left: Knee Arthrex [id number] AR-513-T5 / / Advance Directives For more information, please contact: [phone] * Full Code (Latest Code Status on File) Date Activated Date Inactivated Comments 04/12/2021 1:12 PM 04/13/2021 1:32 PM Question Answer Comments Full Code: Discussed * Full Code Date Activated Date Inactivated Comments 12/21/2020 3:06 PM 12/22/2020 3:11 PM Question Answer Comments Full Code: Discussed Care Teams Configuration Management Manager Relationship Specialty Start Date End Date Elsewhere, Pcp PCP - General Family Medicine 12/18/20
--- OUTSIDE RECORDS SUMMARY | 2024-01-03 10:24 | XMS_ITS | Encounter Summary ---
Author Organization [facility] Address [address] [place] [address] Care Team Providers Care Shop Supervisor Name Role Phone Elsewhere, Pcp Primary Care Provider Unavailabl e Reason for Referral * Outpatient (Routine) - Authorized Specialty Diagnoses / Procedures Referred By Contconnie t Referred To Contact Dermatology Diagnoses Other Disorders Of Calcium Metabolism Sakshi Hagan M.D. [address] [place] [address] [facility] Referral ID Status Reason Start Date Expiration Date V isits Requested Visits Authorized [id number] Authorized 10/17/2023 04/17/2025 1 1 Encounter Details Date Type Department Care Team (Late st Contact Info) Description 10/17/2023 [facility] [address] [place] [address] Sakshi Hagan M.D. [address] [place] [id number] Other Disorders Of Calcium Metabolism (Primary Dx) Social History Tobacco Use Types [...] How often do you attend chur or jain services? 1 to 4 times per year 07/13/2021 Do you belong to any clubs o r organizations such as amish groups, unions, fraternal or athletic groups, or [...] and heating? Not hard at all 03/14/2023 [facility] [place] of Occupat ional Health - Occupational Stress [...] your living situation today? I have a [facility] place to live 03/14/2023 Education Answer Date [...] Name Type Priority Associated Diagnoses Order Schedule Dermatology Referral Outpatient Referral Routine Other Disorders Of Calcium Metabolism Expected: 10/17/2023 (Approximate), Expires: 01/15/2025 documented as of this encounter Visit Diagnoses Diagnosis Other Disorders Of Calcium Metabolism- Primary documented in this encounter Care Teams Shop Supervisor Relationship Specialty Start Date End Date Elsewhere, Pcp PCP - General Family Medicine 12/18/20 documented as of this encounter
== END 2023-12-31 07:56 | disposition home or self-care (01) ==
LOC: NFLDREF 01-03 10:22
PROVIDERS: PCP Internal Medicine; Referring Provider Internal Medicine; Visit Provider Internal Medicine
DX: R73.03 Prediabetes (principal); M81.0 Age-related osteoporosis without current pathological fracture; E78.5 Hyperlipidemia, unspecified; I10 Essential (primary) hypertension
CPT/HCPCS: 80061; 82306; 82947

== ENCOUNTER 2024-03-04 14:34 | Outpatient (CLI) | payer MEDICARE, BC, SELFPAY ==
--- OUTSIDE RECORDS SUMMARY | 2024-03-04 14:38 | XMS_ITS ---
Author Organization [facility] Address [address] [place] [address] Care Team Providers Care Collar Sewer Name Role Phone Unavailable Unavailable Unavailable Surgery Details Not on file Complications Check Surgery Details section. Procedure Estimated Blood Loss Check Surgery Details section. Procedure Findings Check Surgery Details section. Procedure Specimens Taken Check Surgery Details section.
--- OUTSIDE RECORDS SUMMARY | 2024-03-04 14:38 | XMS_ITS | Encounter Summary ---
Author Organization [facility] Address [address] [place] [address] Care Team Providers Care Locomotive Crane Operator Helper Name Role Phone Elsewhere, Pcp Primary Care Provider Unavailabl e Encounter Details Date Type Department Care Team (Late st Contact Info) Description 02/19/2024 Clinical Communication Department of Dermatology in [address] [phone] Elsewhere, Pcp Social History Tobacco Use Types Packs/Day Years [...] often do you attend chur ch or presybeterian services? 1 to 4 times per year 07/13/2021 Do you belong to any clubs o r organizations such as religious groups, unions, fraternal or athletic groups, or [...] and heating? Not hard at all 03/14/2023 [facility] of Occupat ional Health - Occupational Stress [...] your living situation today? I have a [facility] place to live 03/14/2023 Education [...] on filedocumented in this encounter Care Teams Locomotive Crane Operator Helper Relationship Specialty Start Date End Date Elsewhere, Pcp PCP - General Family Medicine 12/18/20 documented as of this encounter
--- OUTSIDE RECORDS SUMMARY | 2024-03-04 14:38 | XMS_ITS | Referral Summary ---
Author Organization [facility] Address [address] [place] [address] Care Team Providers Care Wwe Wrestler Name Role Phone Elsewhere, Pcp Primary Care Provider Unavailabl e Source Comments Patient records contain information from all sites at [facility]. For routine questions regarding patient records, call [phone] during business hours, M-F 8:00 AM - 5:00 PM Central Time. Record requests for emergency care only can be directed to [phone] at any time.[facility] Encounters Date Type Department Care Team Description 02/19/2024 Clinical Communication Department of Dermatology in [address] [address] Elsewhere, Pcp from Last 3 Months Allergies No known [...] by mouth every morning. 10/28/2016 Active vitamins A,C,X-rjqm-ldtmij (PRESERVISION AREDS) 7,160 Units-113 mg-100 Units per [...] Knee Arthroplasty 06/27/2021 Arthritis Knee Left 02/01/2021 Overview (02/01/2021): Added automatically from request for surgery [id number] Hypertension Essential Primary 12/19/2020 Hyperlipidemia 12/19/2020 Murmur Heart 12/19/2020 Osteoporosis 12/19/2020 Preoperative Exam 10/16/2020 Overview (10/16/2020): Added automatically from request for surgery [id number] Pain Knee Bilateral 10/16/2020 Overview (12/20/2020): Added automatically from request for surgery [id number] Encounter For Preprocedural Laboratory Examination (COVID-19) 10/16/2020 Overview (12/20/2020): Added automatically from request for surgery [id number] Contact With And (Suspected) Exposure To COVID-1 9 10/16/2020 Overview (12/20/2020): Added automatically from request for surgery [id number] Primary Osteoarthritis Knee Bilateral 03/26/2017 Resolved Problems Problem Noted Date Diagnosed Date Resolved Date Mitral Valve Prolapse 12/19/20202020 Encounter For Preprocedural Laboratory Examination (COVID-19) 10/16/2020 12/19/2020 Overview (10/16/2020): Added automatically from request for surgery [id number] Contact With And (Suspected) Exposure To COVID-19 10/16/2020 12/19/2020 Overview (10/16/2020): Added automatically from request for surgery [id number] Pain Knee Bilateral 02/06/2017 12/20/19 21 Immunizations [...] often do you attend chur ch or caodaism services? 1 to 4 times per year 07/13/2021 Do you belong to any clubs o r organizations such as yarsani groups, unions, fraternal or athletic groups, or [...] and heating? Not hard at all 03/14/2023 [facility] - Occupational Stress [...] on file Medical Devices Implanted Type Area All Round Logger Device Identifier Shelf Expiration Date Model / Serial / Lot Cmnt Bn Full Dose 40gm Simplex - [id number] Implanted:Qty : 1 on 12/21/2020 by [facility]ement Right: Knee Marilee 01/27/2022 6191-1-00 1 / / [id number] Cmnt Bn Half Dose 20gm Simplex - [id number] Implanted:Qty : 1 on 12/21/2020 by [facility] Bone Cement Right: Knee Marilee 06/29/2022 6188-1-00 1 / / [id number] Cmnt Bn Smp 20gm - [id number] Implanted:Qty : 1 on 04/12/2021 by Matthew Wright M.D. at [facility] Bone Cement Left: Knee Marilee 6188-1-00 1 / / [facility] 40gm - [id number] Implanted:Qty : 1 on 04/12/2021 by Matthew Wright M.D. at [facility] Bone Cement Left: Knee [place] 6191-1-00 1 / / Ibalance Tka, Femoral Implant, Ps, Cemented, Right Implanted:Qty : 1 on 12/21/2020 by Matthew Wright M.D. at [facility] Knee Implant Right: Knee Arthrex 01/28/2024 AR-526-6R / / [id number] Ibalance Tka, Tibial Tray, Modular Implanted:Qty : 1 on 12/21/2020 by Matthew Wright M.D. at [facility] Knee Implant Right: Knee Arthrex 05/29/2025 AR-513-T4 / / [id number] Ibalance Tka, Tibial Bearing Implant, Ps, Vit E Implanted:Qty : 1 on 12/21/2020 by Matthew Wright M.D. at [facility] Knee Implant Right: Knee Arthrex 12/27/2024 AR-523-B4 / [id number] Ibalance Tibial Insert Ps Vit. E Sz 5 9mm Implanted:Qty : 1 on 04/12/2021 by Matthew Wright M.D. at [facility] Knee Implant Left: Knee Arthrex [id number] 11/27/2024 AR-523-B5 / [id number] Ibalance Femur Ps Sz 7 Left Implanted:Qty : 1 on 04/12/2021 by Matthew Wright M.D. at [facility] Knee Implant Left: Knee Arthrex [id number] 04/29/2024 AR-526-7L / / [id number] Ibalance Tibial Tray Modular Sz 5 Implanted:Qty : 1 on 04/12/2021 by Matthew Wright M.D. at [facility] Knee Implant Left: Knee Arthrex [id number] AR-513-T5 / / Advance Directives For more information, please contact: [phone] * Full Code (Latest Code Status on File) Date Activated Date Inactivated Comments 04/12/2021 1:12 PM 04/13/2021 1:32 PM Question Answer Comments Full Code: Discussed * Full Code Date Activated Date Inactivated Comments 12/21/2020 3:06 PM 12/22/2020 3:11 PM Question Answer Comments Full Code: Discussed Care Teams Wwe Wrestler Relationship Specialty Start Date End Date Elsewhere, Pcp PCP - General Family Medicine 12/18/20
--- OUTSIDE RECORDS SUMMARY | 2024-03-04 14:38 | XMS_ITS | Clinical Summary ---
Author Organization [facility] Address [address] [place] [address] Care Team Providers Care Glazier Artist Name Role Phone Elsewhere, Pcp Primary Care Provider Unavailabl e Source Comments Patient records contain information from all sites at [facility]. For routine questions regarding patient records, call [phone] during business hours, M-F 8:00 AM - 5:00 PM Central Time. Record requests for emergency care only can be directed to [phone] at any time.[facility] Allergies No known active allergies Medications Medication [...] by mouth every morning. 10/28/2016 Active vitamins A,C,R-wzre-tpkvbs (PRESERVISION AREDS) 7,160 Units-113 mg-100 Units per [...] (02/01/2021): Added automatically from request for surgery [id number] Hypertension Essential Primary 12/19/2020 Hyperlipidemia 12/19/2020 Murmur Heart 12/19/2020 Osteoporosis 12/19/2020 Preoperative Exam 10/16/2020 Overview (10/16/2020): Added automatically from request for surgery [id number] Pain Knee Bilateral 10/16/2020 Overview (12/20/2020): Added automatically from request for surgery [id number] Encounter For Preprocedural Laboratory Examination (COVID-19) 10/16/2020 Overview (12/20/2020): Added automatically from request for surgery [id number] Contact With And (Suspected) Exposure To COVID-1 9 10/16/2020 Overview (12/20/2020): Added automatically from request for surgery [id number] Primary Osteoarthritis Knee Bilateral 03/26/2017 Resolved Problems Problem Noted Date Diagnosed Date Resolved Date Mitral Valve Prolapse 12/19/20202020 Encounter For Preprocedural Laboratory Examination (COVID-19) 10/16/2020 12/19/2020 Overview (10/16/2020): Added automatically from request for surgery [id number] Contact With And (Suspected) Exposure To COVID-19 10/16/2020 12/19/2020 Overview (10/16/2020): Added automatically from request for surgery [id number] Pain Knee Bilateral 02/06/2017 12/20/19 21 Encounters Date Type Department Care Team Description 02/19/2024 Clinical Communication Department of Dermatology in [address] [address] Elsewhere, Pcp from Last 3 Months Immunizations Name Administration [...] How often do you attend chur or yarsanism services? 1 to 4 times per year 07/13/2021 Do you belong to any clubs o r organizations such as jehovah's witness groups, unions, fraternal or athletic groups, or [...] and heating? Not hard at all 03/14/2023 [facility] - Occupational Stress Questionnaire Answer Date Recorded [...] your living situation today? I have a [facility] place to live 03/14/2023 Education [...] (Annual) 06/30/2023 COVID-19 Vaccine (2022-2 4 season) 2024 05/11/2023, 02/12/2023, 03/29/2022, Additional history exists Influenza Vaccine (#1) 2024 , 05/20/2022, 04/13/2021, Additional history exists DTaP,Tdap,and Td Vaccines (2 - Td or Tdap) 11/16/2025 11/17/2015, 08/08/2005 Zoster Vaccines Completed 04/13/2019, 01/28, 09/30/2014 Pneumococcal vaccine (65+ years) Completed 10/27/19, 07/13/2019 Medical Devices Implanted Type Area Spool Sorter Device Identifier Shelf Expiration Date Model / Serial / Lot Cmnt Bn Full Dose 40gm Simplex - [id number] Implanted:Qty : 1 on 12/21/2020 by Matthew Wright M.D. at [facility] Bone Cement Right: Knee [place] 01/27/2022 6191 1 / / [id number] Cmnt Bn Half Dose 20gm Simplex - [id number] Implanted:Qty : 1 on 12/21/2020 by Matthew Wright M.D. at [facility] Bone Cement Right: Knee Marilee 06/29/2022 6188 1 / / [id number] Cmnt Bn Smp 20gm - [id number] Implanted:Qty : 1 on 04/12/2021 by Matthew Wright M.D. at [facility] Bone Cement Left: Knee [place]ilee 6188 1 / / Cmnt Bn Smp 40gm - [id number] Implanted:Qty : 1 on 04/12/2021 by Matthew Wright M.D. at [facility] Bone Cement Left: Knee [place] 6191 1 / / Ibalance Tka, Femoral Implant, Ps, Cemented, Right Implanted:Qty : 1 on 12/21/2020 by Matthew Wright M.D. at [facility] Knee Implant Right: Knee Arthrex 01/28/2024 AR-526-6R / / [id number] Ibalance Tka, Tibial Tray, Modular Implanted:Qty : 1 on 12/21/2020 by Matthew Wright M.D. at [facility] Right: Knee Arthrex 05/29/2025 AR-513-T4 / / [id number] Ibalance Tka, Tibial Bearing Implant, Ps, Vit E Implanted:Qty : 1 on 12/21/2020 by Matthew Wright M.D. at [facility] K[facility] Implant Right: Knee Arthrex 12/27/2024 AR-523-B4 10 / / [id number] Ibalance Tibial Insert Ps Vit. E Sz 5 9mm Implanted:Qty : 1 on 04/12/2021 by Matthew Wright M.D. at [facility] Knee Implant Left: Knee Arthrex [id number] 11/27/2024 AR-523-B5 09 / / [id number] Ibalance Femur Ps Sz 7 Left Implanted:Qty : 1 on 04/12/2021 by Matthew Wright M.D. at [facility] Knee Implant Left: Knee Arthrex [id number] 04/29/2024 ELODIA-526-7L / / [id number] Ibalance Tibial Tray Modular Sz 5 Implanted:Qty : 1 on 04/12/2021 by Matthew Wright M.D. at [facility] Knee Implant Left: Knee Arthrex [id number] AR-513-T5 / / Advance Directives For more information, please contact: [phone] * Full Code (Latest Code Status on File) Date Activated Date Inactivated Comments 04/12/2021 1:12 PM 04/13/2021 1:32 PM Question Answer Comments Full Code: Discussed * Full Code Date Activated Date Inactivated Comments 12/21/2020 3:06 PM 12/22/2020 3:11 PM Question Answer Comments Full Code: Discussed Care Teams Glazier Artist Relationship Specialty Start Date End Date Elsewhere, Pcp PCP - General Family Medicine 12/18/20
--- NOTE | 2024-03-04 15:00 | CRLHL7_ITS ---
For Patients: As a result of the Century Cures Act, medical imaging exams and procedure reports are released immediately into your electronic medical record. You may view this report before your referring provider. If you have questions, please contact your health care provider. DXA BONE MINERAL DENSITY STUDY Reason for exam: Screening. Current height (in): 66.5. Weight (lb): 190. Menopause age: 49. Ethnicity: White. 1. Have you had a previous hip or vertebral fracture? No. 2. Have you had any fractures during your adult life which did not result from significant trauma (e.g., auto accident)? No. 3. Did either of your parents have a hip fracture? No. 4. Do you smoke? No. 5. Have you ever taken Glucocorticoids? No. 6. Do you have rheumatoid arthritis? No. 7. Do you have secondary osteoporosis? No. 8. Do you drink 3 or more alcoholic drinks per day? No. 9. Are you being treated for osteoporosis? No. 10. Have you ever taken any of the following medications: Actonel, Evista, Fosamax, Miacalcin, Reclast, Boniva, Forteo, HRT (i.e. estrogen/hormone therapy), Protelos, Prolia, Vitamin D, Calcium, other ??? please specify. ANSWER: Yes, calcium. 11. Do you have any of the following medical conditions: Anorexia or bulimia, asthma or emphysema, end stage renal disease, hyperparathyroidism, any seizure disorders, cancer, inflammatory bowel diseases, hysterectomy, other ??? please specify. ANSWER: No. 12. What was your maximum height (inches)? 67.5. 13. Do you perform weight bearing exercise regularly? No. 14. Do you regularly consume dairy products? Yes. 15. Do you drink caffeinated beverages? Yes. . 16. At what age did your period start? 12. 17. Are you premenopausal? No. 18. How many full term pregnancies have you had? Zero. 19. Have you ever missed your period for more than 6 months in a row (not including or menopause)? No. TECHNIQUE: Bone mineral density study was performed using the [employer]. FINDINGS: The results of the study expressed as bone mineral density (BMD) are as follows: Lumbar spine L1 to L4: BMD: 1.033 g/cm2. T-score: -0.1. Z-score: 2.0. Neck Left: BMD: 0.643 g/cm2. T-score: -1.9. Z-score: -0.1. Right: BMD: 0.678 g/cm2. T-score: -1.5. Z-score: 0.3. Total Left: BMD: 0.791 g/cm2. T-score: -1.2. Z-score: 0.3. Right: BMD: 0.845 g/cm2. T-score: -0.8. Z-score: 0.7. IMPRESSION: Osteopenia. COMPARISON: Compared with scan of 07/22/2019, the bone mineral density has increased by 11.7 percent at the spine and increased by 10 percent at the hip. Compared with scan of 12/05/2016, the bone mineral density has increased by 3.7 percent at the spine and increased by 3 percent at the hip. FRAX 10-year Fracture Risk Major Osteoporotic Fracture: 11 percent Hip Fracture: 1.8 percent Reported Risk Factors: [place] () Neck BMD=0.643, BMI=30.2 Fredrick Bourgeois M.D. Diagnostic Radiologist [email or web address] / bM/Dictated by: Fredrick Bourgeois MD @ 03/04/2024 3:46:00 PM (Electronically Signed)
== END 2024-03-04 14:35 | disposition home or self-care (01) ==
LOC: RAD 14:35
PROVIDERS: PCP Internal Medicine; Visit Provider Internal Medicine
DX: Z13.820 Encounter for screening for osteoporosis (principal); M85.89 Other specified disorders of bone density and structure, multiple sites
CPT/HCPCS: 77080

== ENCOUNTER 2024-03-16 16:21 | Outpatient (CLI) | payer MEDICARE, BC, SELFPAY ==
--- OUTSIDE RECORDS SUMMARY | 2024-03-16 16:25 | XMS_ITS | Clinical Summary ---
Author Organization [facility] Address [address] [place] [address] Care Team Providers Care Mrp Controller Name Role Phone Elsewhere, Pcp Primary Care Provider Unavailabl e Source Comments Patient records contain information from all sites at [facility]. For routine questions regarding patient records, call [phone] during business hours, M-F 8:00 AM - 5:00 PM Central Time. Record requests for emergency care only can be directed to [phone] at any time.[facility] Allergies No known active allergies Medications [...] by mouth every morning. 10/28/2016 Active vitamins A,C,I-uuhj-clnkwk (PRESERVISION AREDS) 7,160 Units-113 mg-100 Units per [...] (02/01/2021): Added automatically from request for surgery [id number] Hypertension Essential Primary 12/19/2020 Hyperlipidemia 12/19/2020 Murmur Heart 12/19/2020 Osteoporosis 12/19/2020 Preoperative Exam 10/16/2020 Overview (10/16/2020): Added automatically from request for surgery [id number] Pain Knee Bilateral 10/16/2020 Overview (12/20/2020): Added automatically from request for surgery [id number] Encounter For Preprocedural Laboratory Examination (COVID-19) 10/16/2020 Overview (12/20/2020): Added automatically from request for surgery [id number] Contact With And (Suspected) Exposure To COVID-1 9 10/16/2020 Overview (12/20/2020): Added automatically from request for surgery [id number] Primary Osteoarthritis Knee Bilateral 03/26/2017 Resolved Problems Problem Noted Date Diagnosed Date Resolved Date Mitral Valve Prolapse 12/19/20202020 Encounter For Preprocedural Laboratory Examination (COVID-19) 10/16/2020 12/19/2020 Overview (10/16/2020): Added automatically from request for surgery [id number] Contact With And (Suspected) Exposure To COVID-19 10/16/2020 12/19/2020 Overview (10/16/2020): Added automatically from request for surgery [id number] Pain Knee Bilateral 02/06/2017 12/20/19 21 Encounters Date Type Department Care Team Description 02/19/2024 Clinical Communication Department of Dermatology in [address] [address] Elsewhere, Pcp from Last 3 [...] How often do you attend chur or samaritan services? 1 to 4 times per year 07/13/2021 Do you belong to any clubs o r organizations such as oriental orthodox groups, unions, fraternal or athletic groups, or [...] heating? Not hard at all 03/14/2023 [facility] Occupational Stress Questionnaire Answer Date Recorded [...] your living situation today? I have a [facility] place to live 03/14/2023 Education Answer [...] 10/27/19, 07/13/2019 Medical Devices Implanted Type Area Account Consultant Device Identifier Shelf Expiration Date Model / Serial / Lot Cmnt Bn Full Dose 40gm Simplex - [id number] Implanted:Qty : 1 on 12/21/2020 by Matthew Wright M.D. at [facility] Bone Cement Right: Knee Marilee 01/27/2022 6191 1 / / [id number] Cmnt Bn Half Dose 20gm Simplex - [id number] Implanted:Qty : 1 on 12/21/2020 by Matthew Wright M.D. at [facility] Bone Cement Right: Knee Marilee 06/29/2022 6188 1 / / [id number] Cmnt Bn Smp 20gm - [id number] Implanted:Qty : 1 on 04/12/2021 by Matthew Wright M.D. at [facility] Bone Cement Left: Knee [place] 6188 1 / / Cmnt Bn Smp 40gm - [id number] Implanted:Qty : 1 on 04/12/2021 by Matthew Wright M.D. at [facility] Bone Cement Left: Knee [place] 6191 1 / / Ibalance Tka, Femoral Implant, Ps, Cemented, Right Implanted:Qty : 1 on 12/21/2020 by Matthew Wright M.D. at [facility] Knee Implant Right: Knee Arthrex 01/28/2024 AR-526-6R / / [id number] Ibalance Tka, Tibial Tray, Modular Implanted:Qty : 1 on 12/21/2020 by Matthew [facility] M.D. at [facility] Right: Knee Arthrex 05/29/2025 AR-513-T4 / / [id number] Ibalance Tka, Tibial Bearing Implant, Ps, Vit E Implanted:Qty : 1 on 12/21/2020 by Matthew Wright M.D. at [facility] Implant Right: Knee Arthrex 12/27/2024 AR-523-B4 10 / / [id number] Ibalance Tibial Insert Ps Vit. E Sz 5 9mm Implanted:Qty : 1 on 04/12/2021 by Matthew Wright M.D. at [facility] Knee Implant Left: Knee Arthrex [id number] 11/27/2024 AR-523-B5 09 / / [id number] Ibalance Femur Ps Sz 7 Left Implanted:Qty : 1 on 04/12/2021 by Matthew Wright M.D. at [facility] Knee Implant Left: Knee Arthrex [id number] 04/29/2024 ELODIA-526-7L / / [id number] Ibalance Tibial Tray Modular Sz 5 Implanted:Qty : 1 on 04/12/2021 by Matthew Wright M.D. at [facility] Knee Implant Left: Knee Arthrex [id number] AR-513-T5 / / Advance Directives For more information, please contact: [phone] * Full Code (Latest Code Status on File) Date Activated Date Inactivated Comments 04/12/2021 1:12 PM 04/13/2021 1:32 PM Question Answer Comments Full Code: Discussed * Full Code Date Activated Date Inactivated Comments 12/21/2020 3:06 PM 12/22/2020 3:11 PM Question Answer Comments Full Code: Discussed Care Teams Mrp Controller Relationship Specialty Start Date End Date Elsewhere, Pcp PCP - General Family Medicine 12/18/20
--- OUTSIDE RECORDS SUMMARY | 2024-03-16 16:25 | XMS_ITS | Referral Summary ---
Author Organization [facility] Address [address] [place] [address] Care Team Providers Care Title Department Manager Name Role Phone Elsewhere, Pcp Primary Care Provider Unavailabl e Source Comments Patient records contain information from all sites at [facility]. For routine questions regarding patient records, call [phone] during business hours, M-F 8:00 AM - 5:00 PM Central Time. Record requests for emergency care only can be directed to [phone] at any time.[facility] Encounters Date Type Department Care Team Description 02/19/2024 Clinical Communication Department of Dermatology in [address] [address] Elsewhere, Pcp from Last 3 [...] by mouth every morning. 10/28/2016 Active vitamins A,C,L-kmnc-zxnrqo (PRESERVISION AREDS) 7,160 Units-113 mg-100 Units per [...] (02/01/2021): Added automatically from request for surgery [id number] Hypertension Essential Primary 12/19/2020 Hyperlipidemia 12/19/2020 Murmur Heart 12/19/2020 Osteoporosis 12/19/2020 Preoperative Exam 10/16/2020 Overview (10/16/2020): Added automatically from request for surgery [id number] Pain Knee Bilateral 10/16/2020 Overview (12/20/2020): Added automatically from request for surgery [id number] Encounter For Preprocedural Laboratory Examination (COVID-19) 10/16/2020 Overview (12/20/2020): Added automatically from request for surgery [id number] Contact With And (Suspected) Exposure To COVID-1 9 10/16/2020 Overview (12/20/2020): Added automatically from request for surgery [id number] Primary Osteoarthritis Knee Bilateral 03/26/2017 Resolved Problems Problem Noted Date Diagnosed Date Resolved Date Mitral Valve Prolapse 12/19/20202020 Encounter For Preprocedural Laboratory Examination (COVID-19) 10/16/2020 12/19/2020 Overview (10/16/2020): Added automatically from request for surgery [id number] Contact With And (Suspected) Exposure To COVID-19 10/16/2020 12/19/2020 Overview (10/16/2020): Added automatically from request for surgery [id number] Pain Knee Bilateral 02/06/2017 12/20/19 21 Immunizations [...] often do you attend chur ch or anglican services? 1 to 4 times per year 07/13/2021 Do you belong to any clubs o r organizations such as hinduism groups, unions, fraternal or athletic groups, or [...] and heating? Not hard at all 03/14/2023 [facility] of Occupat ional Health - Occupational Stress [...] on file Medical Devices Implanted Type Area Forepart Reducer Device Identifier Shelf Expiration Date Model / Serial / Lot Cmnt Bn Full Dose 40gm Simplex - [id number] Implanted:Qty : 1 on 12/21/2020 by Matthew Wright M.D. at [facility] Bone Cement Right: Knee [place] 01/27/2022 6191-1-00 1 / / [id number] Cmnt Bn Half Dose 20gm Simplex - [id number] Implanted:Qty : 1 on 12/21/2020 by Matthew Wright M.D. at [facility] Bone Cement Right: Knee [place] 06/29/2022 6188-1-00 1 / / [id number] Cmnt Bn Smp 20gm - [id number] Implanted:Qty : 1 on 04/12/2021 by Matthew Wright M.D. at [facility] Bone Cement Left: Knee [place] 6188-1-00 1 / / [facility] - [id number] Implanted:Qty : 1 on 04/12/2021 by Matthew Wright M.D. at [facility] Bone Cement Left: Knee [place] 6191-1-00 1 / / Ibalance Tka, Femoral Implant, Ps, Cemented, Right Implanted:Qty : 1 on 12/21/2020 by Matthew Wright M.D. at [facility] Knee Implant Right: Knee [place]threx 01/28/2024 AR-526-6R / / [id number] Ibalance Tka, Tibial Tray, Modular Implanted:Qty : 1 on 12/21/2020 by Matthew Wright M.D. at [facility] Knee Implant Right: Knee [place] 05/29/2025 AR-513-T4 / / [id number] Ibalance Tka, Tibial Bearing Implant, Ps, Vit E Implanted:Qty : 1 on 12/21/2020 by Matthew Wright M.D. at [facility] Knee Implant Right: Knee Arthrex 12/27/2024 AR-523-B4 / [id number] Ibalance Tibial Insert Ps Vit. E Sz 5 9mm Implanted:Qty : 1 on 04/12/2021 by Matthew Wright M.D. at [facility] Knee Implant Left: Knee Arthrex [id number] 11/27/2024 AR-523-B5 / [id number] Ibalance Femur Ps Sz 7 Left Implanted:Qty : 1 on 04/12/2021 by Matthew Wright M.D. at [facility] Knee Implant Left: Knee Arthrex [id number] 04/29/2024 AR-526-7L / / [id number] Ibalance Tibial Tray Modular Sz 5 Implanted:Qty : 1 on 04/12/2021 by Matthew Wright M.D. at [facility] Knee Implant Left: Knee Arthrex [id number] AR-513-T5 / / Advance Directives For more information, please contact: [phone] * Full Code (Latest Code Status on File) Date Activated Date Inactivated Comments 04/12/2021 1:12 PM 04/13/2021 1:32 PM Question Answer Comments Full Code: Discussed * Full Code Date Activated Date Inactivated Comments 12/21/2020 3:06 PM 12/22/2020 3:11 PM Question Answer Comments Full Code: Discussed Care Teams Title Department Manager Relationship Specialty Start Date End Date Elsewhere, Pcp PCP - General Family Medicine 12/18/20
--- OUTSIDE RECORDS SUMMARY | 2024-03-16 16:25 | XMS_ITS ---
Author Organization [facility] Address [address] [place] [address] Care Team Providers Care High School Professional Name Role Phone Unavailable Unavailable Unavailable Surgery Details Not on file Complications Check Surgery Details section. Procedure Estimated Blood Loss Check Surgery Details section. Procedure Findings Check Surgery Details section. Procedure Specimens Taken Check Surgery Details section.
--- OUTSIDE RECORDS SUMMARY | 2024-03-16 16:25 | XMS_ITS | Encounter Summary ---
Author Organization [facility] Address [address] [place] [address] Care Team Providers Care Assistant Finance Director Name Role Phone Elsewhere, Pcp Primary Care Provider Unavailabl e Encounter Details Date Type Department Care Team (Late st Contact Info) Description 02/19/2024 Clinical Communication Department of Dermatology in [address] [phone] Elsewhere, Pcp Social History Tobacco [...] often do you attend chur ch or christianity services? 1 to 4 times per year 07/13/2021 Do you belong to any clubs o r organizations such as mormonism groups, unions, fraternal or athletic groups, or [...] and heating? Not hard at all 03/14/2023 [facility] of Occupat ional Health - Occupational [...] your living situation today? I have a [facility] place to live 03/14/2023 Education [...] on filedocumented in this encounter Care Teams Assistant Finance Director Relationship Specialty Start Date End Date Elsewhere, Pcp PCP - General Family Medicine 12/18/20 documented as of this encounter
== END 2024-03-16 16:22 | disposition home or self-care (01) ==
PROVIDERS: PCP Internal Medicine; Visit Provider Internal Medicine
DX: E83.59 Other disorders of calcium metabolism (principal)
CPT/HCPCS: 80053; 83970

== ENCOUNTER 2024-03-19 08:04 | Outpatient (CLI) | payer MEDICARE, BC, SELFPAY ==
--- OUTSIDE RECORDS SUMMARY | 2024-03-19 08:08 | XMS_ITS | Encounter Summary ---
Author Organization [facility] Address [address] [place] [address] Care Team Providers Care Potato Inspector Name Role Phone Elsewhere, Pcp Primary Care Provider Unavailabl e Encounter Details Date Type Department Care Team (Late st Contact Info) Description 02/19/2024 Clinical Communication Department of Dermatology in [address] [phone] Elsewhere, Pcp Social History Tobacco [...] often do you attend chur ch or amish services? 1 to 4 times per year 07/13/2021 Do you belong to any clubs o r organizations such as anabaptist groups, unions, fraternal or athletic groups, or [...] and heating? Not hard at all 03/14/2023 [facility] of Occupat ional Health - Occupational Stress [...] your living situation today? I have a [facility] place to live 03/14/2023 Education Answer [...] on filedocumented in this encounter Care Teams Potato Inspector Relationship Specialty Start Date End Date Elsewhere, Pcp PCP - General Family Medicine 12/18/20 documented as of this encounter
--- OUTSIDE RECORDS SUMMARY | 2024-03-19 08:08 | XMS_ITS ---
Author Organization [facility] Address [address] [place] [address] Care Team Providers Care Case Managers Name Role Phone Unavailable Unavailable Unavailable Surgery Details Not on file Complications Check Surgery Details section. Procedure Estimated Blood Loss Check Surgery Details section. Procedure Findings Check Surgery Details section. Procedure Specimens Taken Check Surgery Details section.
--- OUTSIDE RECORDS SUMMARY | 2024-03-19 08:08 | XMS_ITS | Referral Summary ---
Author Organization [facility] Address [address] [place] [address] Care Team Providers Care Mobile Application Development Lead Name Role Phone Elsewhere, Pcp Primary Care Provider Unavailabl e Source Comments Patient records contain information from all sites at [facility]. For routine questions regarding patient records, call [phone] during business hours, M-F 8:00 AM - 5:00 PM Central Time. Record requests for emergency care only can be directed to [phone] at any time.[facility] Encounters Date Type Department Care Team Description 02/19/2024 Clinical Communication Department of Dermatology in [address] [phone] Elsewhere, Pcp from Last 3 [...] by mouth every morning. 10/28/2016 Active vitamins A,C,B-urwe-ujkfxy (PRESERVISION AREDS) 7,160 Units-113 mg-100 Units per [...] (02/01/2021): Added automatically from request for surgery [id number] Hypertension Essential Primary 12/19/2020 Hyperlipidemia 12/19/2020 Murmur Heart 12/19/2020 Osteoporosis 12/19/2020 Preoperative Exam 10/16/2020 Overview (10/16/2020): Added automatically from request for surgery [id number] Pain Knee Bilateral 10/16/2020 Overview (12/20/2020): Added automatically from request for surgery [id number] Encounter For Preprocedural Laboratory Examination (COVID-19) 10/16/2020 Overview (12/20/2020): Added automatically from request for surgery [id number] Contact With And (Suspected) Exposure To COVID-1 9 10/16/2020 Overview (12/20/2020): Added automatically from request for surgery [id number] Primary Osteoarthritis Knee Bilateral 03/26/2017 Resolved Problems Problem Noted Date Diagnosed Date Resolved Date Mitral Valve Prolapse 12/19/20202020 Encounter For Preprocedural Laboratory Examination (COVID-19) 10/16/2020 12/19/2020 Overview (10/16/2020): Added automatically from request for surgery [id number] Contact With And (Suspected) Exposure To COVID-19 10/16/2020 12/19/2020 Overview (10/16/2020): Added automatically from request for surgery [id number] Pain Knee Bilateral 02/06/2017 12/20/19 21 Immunizations [...] often do you attend chur ch or sikh services? 1 to 4 times per year 07/13/2021 Do you belong to any clubs o r organizations such as restoration groups, unions, fraternal or athletic groups, or [...] heating? Not hard at all 03/14/2023 [facility] of Occupat ional Health - Occupational Stress [...] on file Medical Devices Implanted Type Area Tie Man Device Identifier Shelf Expiration Date Model / Serial / Lot Cmnt Bn Full Dose 40gm Simplex - [id number] Implanted:Qty : 1 on 12/21/2020 by Matthew Wright M.D. at [facility] Right: Knee [place] 01/27/2022 6191-1-00 1 / / [id number] Cmnt Bn Half Dose 20gm Simplex - [id number] Implanted:Qty : 1 on 12/21/2020 by Matthew Wright M.D. at [facility] Right: Knee [place] 06/29/2022 6188-1-00 1 / / [id number] Cmnt Bn Smp 20gm - [id number] Implanted:Qty : 1 on 04/12/2021 by Matthew Wright M.D. at [facility] Bone Cement Left: Knee [place] 6188-1-00 1 / / [facility] 40gm - [id number] Implanted:Qty : 1 on 04/12/2021 by Matthew Wright M.D. at [facility] Bone Cement Left: Knee [place] 6191-1-00 1 / / Ibalance Tka, Femoral Implant, Ps, Cemented, Right Implanted:Qty : 1 on 12/21/2020 by Matthew Wright M.D. at [facility] Knee Implant Right: Knee Arthrex 01/28/2024 AR-526-6R / / [id number] Ibalance Tka, Tibial Tray, Modular Implanted:Qty : 1 on 12/21/2020 by Matthew Wright M.D. at [facility] Knee Implant Right: Knee Arthrex 05/29/2025 AR-513-T4 / / [id number] Ibalance Tka, Tibial Bearing Implant, Ps, Vit E Implanted:Qty : 1 on 12/21/2020 by Matthew Wright M.D. at [facility] Knee Implant Right: Knee Arthrex 12/27/2024 AR-523-B4 / [id number] Ibalance Tibial Insert Ps Vit. E Sz 5 9mm Implanted:Qty : 1 on 04/12/2021 by Matthew Wright M.D. at [facility] Knee Implant Left: Knee Arthrex [id number] 11/27/2024 AR-523-B5 / [id number] Ibalance Femur Ps Sz 7 Left Implanted:Qty : 1 on 04/12/2021 by Matthew Wright M.D. at [facility] Knee Implant Left: Knee Arthrex [id number] 04/29/2024 AR-526-7L / / [id number] Ibalance Tibial Tray Modular Sz 5 Implanted:Qty : 1 on 04/12/2021 by Matthew Wright M.D. at [facility] Knee Implant Left: Knee Arthrex [id number] AR-513-T5 / / Advance Directives For more information, please contact: [phone] * Full Code (Latest Code Status on File) Date Activated Date Inactivated Comments 04/12/2021 1:12 PM 04/13/2021 1:32 PM Question Answer Comments Full Code: Discussed * Full Code Date Activated Date Inactivated Comments 12/21/2020 3:06 PM 12/22/2020 3:11 PM Question Answer Comments Full Code: Discussed Care Teams Mobile Application Development Lead Relationship Specialty Start Date End Date Elsewhere, Pcp PCP - General Family Medicine 12/18/20
--- OUTSIDE RECORDS SUMMARY | 2024-03-19 08:08 | XMS_ITS | Clinical Summary ---
Author Organization [facility] Address [address] [place] [address] Care Team Providers Care Well Site Drilling Engineer Name Role Phone Elsewhere, Pcp Primary Care Provider Unavailabl e Source Comments Patient records contain information from all sites at [facility]. For routine questions regarding patient records, call [phone] during business hours, M-F 8:00 AM - 5:00 PM Central Time. Record requests for emergency care only can be directed to [phone] at any time.[facility] Allergies No known active allergies Medications [...] by mouth every morning. 10/28/2016 Active vitamins A,C,B-eebr-wdhhia (PRESERVISION AREDS) 7,160 Units-113 mg-100 Units per [...] (02/01/2021): Added automatically from request for surgery [id number] Hypertension Essential Primary 12/19/2020 Hyperlipidemia 12/19/2020 Murmur Heart 12/19/2020 Osteoporosis 12/19/2020 Preoperative Exam 10/16/2020 Overview (10/16/2020): Added automatically from request for surgery [id number] Pain Knee Bilateral 10/16/2020 Overview (12/20/2020): Added automatically from request for surgery [id number] Encounter For Preprocedural Laboratory Examination (COVID-19) 10/16/2020 Overview (12/20/2020): Added automatically from request for surgery [id number] Contact With And (Suspected) Exposure To COVID-1 9 10/16/2020 Overview (12/20/2020): Added automatically from request for surgery [id number] Primary Osteoarthritis Knee Bilateral 03/26/2017 Resolved Problems Problem Noted Date Diagnosed Date Resolved Date Mitral Valve Prolapse 12/19/20202020 Encounter For Preprocedural Laboratory Examination (COVID-19) 10/16/2020 12/19/2020 Overview (10/16/2020): Added automatically from request for surgery [id number] Contact With And (Suspected) Exposure To COVID-19 10/16/2020 12/19/2020 Overview (10/16/2020): Added automatically from request for surgery [id number] Pain Knee Bilateral 02/06/2017 12/20/19 21 Encounters Date Type Department Care Team Description 02/19/2024 Clinical Communication Department of Dermatology in [address] [phone] Elsewhere, Pcp from Last 3 [...] How often do you attend chur or lutheran services? 1 to 4 times per year 07/13/2021 Do you belong to any clubs o r organizations such as druze groups, unions, fraternal or athletic groups, or [...] 03/14/2023 [facility] Questionnaire Answer Date [...] your living situation today? I have a [facility] place to live 03/14/2023 Education Answer [...] 10/27/19, 07/13/2019 Medical Devices Implanted Type Area Pressurization Mechanic Device Identifier Shelf Expiration Date Model / Serial / Lot Cmnt Bn Full Dose 40gm Simplex - [id number] Implanted:Qty : 1 on 12/21/2020 by Matthew Wright M.D. at [facility] Bone Cement Right: Knee [place] 01/27/2022 6191 1 / / [id number] Cmnt Bn Half Dose 20gm Simplex - [id number] Implanted:Qty : 1 on 12/21/2020 by Matthew Wright M.D. at [facility] Bone Cement Right: Knee [place] 06/29/2022 6188 1 / / [id number] Cmnt Bn Smp 20gm - [id number] Implanted:Qty : 1 on 04/12/2021 by Matthew Wright M.D. at [facility] Bone Cement Left: Knee [place] 6188 1 / / Cmnt Bn Smp 40gm - [id number] Implanted:Qty : 1 on 04/12/2021 by Matthew Wright M.D. at [facility] Bone Cement Left: Knee [place] 6191 1 / / Ibalance Tka, Femoral Implant, Ps, Cemented, Right Implanted:Qty : 1 on 12/21/2020 by Matthew Wright M.D. at [facility] Knee Implant Right: Knee Arthrex 01/28/2024 AR-526-6R / / [id number] Ibalance Tka, Tibial Tray, Modular Implanted:Qty : 1 on 12/21/2020 by Matthew Wright M.D. at [facility] [place] Knee Implant Right: Knee Arthrex 05/29/2025 AR-513-T4 / / [id number] Ibalance Tka, Tibial Bearing Implant, Ps, Vit E Implanted:Qty : 1 on 12/21/2020 by Matthew Wright M.D. at [facility] [place] Knee Implant Right: Knee Arthrex 12/27/2024 AR-523-B4 10 / / [id number] Ibalance Tibial Insert Ps Vit. E Sz 5 9mm Implanted:Qty : 1 on 04/12/2021 by Matthew Wright M.D. at [facility] Knee Implant Left: Knee Arthrex [id number] 11/27/2024 AR-523-B5 09 / / [id number] Ibalance Femur Ps Sz 7 Left Implanted:Qty : 1 on 04/12/2021 by Matthew Wright M.D. at [facility] Knee Implant Left: Knee Arthrex [id number] 04/29/2024 ELODIA-526-7L / / [id number] Ibalance Tibial Tray Modular Sz 5 Implanted:Qty : 1 on 04/12/2021 by Matthew Wright M.D. at [facility] Knee Implant Left: Knee Arthrex [id number] AR-513-T5 / / Advance Directives For more information, please contact: [phone] * Full Code (Latest Code Status on File) Date Activated Date Inactivated Comments 04/12/2021 1:12 PM 04/13/2021 1:32 PM Question Answer Comments Full Code: Discussed * Full Code Date Activated Date Inactivated Comments 12/21/2020 3:06 PM 12/22/2020 3:11 PM Question Answer Comments Full Code: Discussed Care Teams Well Site Drilling Engineer Relationship Specialty Start Date End Date Elsewhere, Pcp PCP - General Family Medicine 12/18/20
--- NOTE | 2024-03-19 08:15 | CRLHL7_ITS ---
For Patients: As a result of the Century Cures Act, medical imaging exams and procedure reports are released immediately into your electronic medical record. You may view this report before your referring provider. If you have questions, please contact your health care provider. BILATERAL SCREENING MAMMOGRAM WITH COMPUTER-AIDED DETECTION AND TOMOSYNTHESIS TECHNIQUE: CC and MLO views were obtained. These mammographic images have been obtained using full-field digital technique. These mammographic images were interpreted with the benefit of computer-aided detection. Breast tomosynthesis was used in this interpretation. COMPARISON FILM: 02/13/23, 01/24/22, 08/10/20. FINDINGS: The breasts are extremely dense, which lowers the sensitivity of mammography. IMPRESSION: There is no radiographic evidence for malignancy. ASSESSMENT: BI-RADS Category 2: Benign RECOMMENDATION: Routine screening mammogram in 1 year. A lay language report of this examination will be provided to the patient. FREDRICK WALKER M.D. Diagnostic Radiologist [email or web address] Transcribed: 03/19/2024, 3:[address]/Dictated by: Fredrick Walker MD @ 03/19/2024 12:57:00 PM (Electronically Signed)
== END 2024-03-19 08:05 | disposition home or self-care (01) ==
LOC: MAMMO 08:05
PROVIDERS: PCP Internal Medicine; Visit Provider Internal Medicine
DX: Z12.31 Encounter for screening mammogram for malignant neoplasm of breast (principal); R92.343 Mammographic extreme density, bilateral breasts
CPT/HCPCS: 77063; 77067

== ENCOUNTER 2024-03-29 11:34 | Outpatient (CLI) | payer MEDICARE, BC, SELFPAY ==
--- OUTSIDE RECORDS SUMMARY | 2024-03-29 11:38 | XMS_ITS ---
Author Organization [facility] Address [address] [place] [address] Care Team Providers Care Structural Engineer Name Role Phone Unavailable Unavailable Unavailable Surgery Details Not on file Complications Check Surgery Details section. Procedure Estimated Blood Loss Check Surgery Details section. Procedure Findings Check Surgery Details section. Procedure Specimens Taken Check Surgery Details section.
--- OUTSIDE RECORDS SUMMARY | 2024-03-29 11:38 | XMS_ITS | Encounter Summary ---
Author Organization [facility] Address [address] [place] [address] Care Team Providers Care Emery Wheel Worker Name Role Phone Elsewhere, Pcp Primary Care Provider Unavailabl e Encounter Details Date Type Department Care Team (Late st Contact Info) Description 02/19/2024 Clinical Communication Department of Dermatology in [address] [phone] Elsewhere, Pcp Social History Tobacco [...] often do you attend chur ch or christian services? 1 to 4 times per year [...] heating? Not hard at all 03/14/2023 [facility] of Occupat ional Health - Occupational [...] your living situation today? I have a [facility] place to live 03/14/2023 Education Answer [...] on filedocumented in this encounter Care Teams Emery Wheel Worker Relationship Specialty Start Date End Date Elsewhere, Pcp PCP - General Family Medicine 12/18/20 documented as of this encounter
--- OUTSIDE RECORDS SUMMARY | 2024-03-29 11:38 | XMS_ITS | Referral Summary ---
Author Organization [facility] Address [address] [place] [address] Care Team Providers Care Senior Games Technician Name Role Phone Elsewhere, Pcp Primary Care Provider Unavailabl e Source Comments Patient records contain information from all sites at [facility]. For routine questions regarding patient records, call [phone] during business hours, M-F 8:00 AM - 5:00 PM Central Time. Record requests for emergency care only can be directed to [phone] at any time.[facility] Encounters Date Type Department Care Team Description 02/19/2024 Clinical Communication Department of Dermatology in [address] [address] Elsewhere, Pcp from Last 3 [...] by mouth every morning. 10/28/2016 Active vitamins A,C,N-ndtu-dbbkqf (PRESERVISION AREDS) 7,160 Units-113 mg-100 Units per [...] (02/01/2021): Added automatically from request for surgery [id number] Hypertension Essential Primary 12/19/2020 Hyperlipidemia 12/19/2020 Murmur Heart 12/19/2020 Osteoporosis 12/19/2020 Preoperative Exam 10/16/2020 Overview (10/16/2020): Added automatically from request for surgery [id number] Pain Knee Bilateral 10/16/2020 Overview (12/20/2020): Added automatically from request for surgery [id number] Encounter For Preprocedural Laboratory Examination (COVID-19) 10/16/2020 Overview (12/20/2020): Added automatically from request for surgery [id number] Contact With And (Suspected) Exposure To COVID-1 9 10/16/2020 Overview (12/20/2020): Added automatically from request for surgery [id number] Primary Osteoarthritis Knee Bilateral 03/26/2017 Resolved Problems Problem Noted Date Diagnosed Date Resolved Date Mitral Valve Prolapse 12/19/20202020 Encounter For Preprocedural Laboratory Examination (COVID-19) 10/16/2020 12/19/2020 Overview (10/16/2020): Added automatically from request for surgery [id number] Contact With And (Suspected) Exposure To COVID-19 10/16/2020 12/19/2020 Overview (10/16/2020): Added automatically from request for surgery [id number] Pain Knee Bilateral 02/06/2017 12/20/19 21 Immunizations [...] any clubs o r organizations such as presybeterian groups, unions, fraternal or athletic groups, or [...] and heating? Not hard at all 03/14/2023 [facility] [place] [facility] - Occupational Stress [...] on file Medical Devices Implanted Type Area Channeler Outsole Device Identifier Shelf Expiration Date Model / Serial / Lot Cmnt Bn Full Dose 40gm Simplex - [id number] Implanted:Qty : 1 on 12/21/2020 by [facility] M[facility] Right: Knee [place] 01/27/2022 6191-1-00 1 / / [id number] Cmnt Bn Half Dose 20gm Simplex - [id number] Implanted:Qty : 1 on 12/21/2020 by Matthew Wright M.D. [facility] Bone Cement Right: Knee [place] 06/29/2022 6188-1-00 1 / / [id number] Cmnt Bn Smp 20gm - [id number] Implanted:Qty : 1 on 04/12/2021 by Matthew Wright M.D. at [facility] Bone Cement Left: Knee [place] 6188-1-00 1 / / [facility]gm - [id number] Implanted:Qty : 1 on 04/12/2021 by Matthew Wright M.D. at [facility] Bone Cement Left: Knee [place] 6191-1-00 1 / / Ibalance Tka, Femoral Implant, Ps, Cemented, Right Implanted:Qty : 1 on 12/21/2020 by Matthew Wright M.D. at [facility] Knee Implant Right: Knee [place] 01/28/2024 AR-526-6R / / [id number] Ibalance Tka, Tibial Tray, Modular Implanted:Qty : 1 on 12/21/2020 by Matthew Wright M.D. at [facility] Knee Implant Right: Knee [place] 05/29/2025 AR-513-T4 / / [id number] Ibalance Tka, Tibial Bearing Implant, Ps, Vit E Implanted:Qty : 1 on 12/21/2020 by Matthew Wright M.D. at [facility] Knee Implant Right: Knee [place] 12/27/2024 AR-523-B4 / [id number] Ibalance Tibial Insert Ps Vit. E Sz 5 9mm Implanted:Qty : 1 on 04/12/2021 by Matthew Wright M.D. at [facility] Knee Implant Left: Knee [place]threx [id number] 11/27/2024 AR-523-B5 / [id number] Ibalance Femur Ps Sz 7 Left Implanted:Qty : 1 on 04/12/2021 by Matthew Wright M.D. at [facility] Knee Implant Left: Knee Arthrex [id number] 04/29/2024 AR-526-7L / / [id number] Ibalance Tibial Tray Modular Sz 5 Implanted:Qty : 1 on 04/12/2021 by Matthew Wright M.D. at [facility] Knee Implant Left: Knee Arthrex [id number] AR-513-T5 / / Advance Directives For more information, please contact: [phone] * Full Code (Latest Code Status on File) Date Activated Date Inactivated Comments 04/12/2021 1:12 PM 04/13/2021 1:32 PM Question Answer Comments Full Code: Discussed * Full Code Date Activated Date Inactivated Comments 12/21/2020 3:06 PM 12/22/2020 3:11 PM Question Answer Comments Full Code: Discussed Care Teams Senior Games Technician Relationship Specialty Start Date End Date Elsewhere, Pcp PCP - General Family Medicine 12/18/20
--- OUTSIDE RECORDS SUMMARY | 2024-03-29 11:38 | XMS_ITS | Clinical Summary ---
Author Organization [facility] Address [address] [place] [address] Care Team Providers Care Rattan Worker Name Role Phone Elsewhere, Pcp Primary Care Provider Unavailabl e Source Comments Patient records contain information from all sites at [facility]. For routine questions regarding patient records, call [phone] during business hours, M-F 8:00 AM - 5:00 PM Central Time. Record requests for emergency care only can be directed to [phone] at any time.[facility] Allergies No known active allergies Medications [...] by mouth every morning. 10/28/2016 Active vitamins A,C,L-pejd-veptpj (PRESERVISION AREDS) 7,160 Units-113 mg-100 Units per [...] (02/01/2021): Added automatically from request for surgery [id number] Hypertension Essential Primary 12/19/2020 Hyperlipidemia 12/19/2020 Murmur Heart 12/19/2020 Osteoporosis 12/19/2020 Preoperative Exam 10/16/2020 Overview (10/16/2020): Added automatically from request for surgery [id number] Pain Knee Bilateral 10/16/2020 Overview (12/20/2020): Added automatically from request for surgery [id number] Encounter For Preprocedural Laboratory Examination (COVID-19) 10/16/2020 Overview (12/20/2020): Added automatically from request for surgery [id number] Contact With And (Suspected) Exposure To COVID-1 9 10/16/2020 Overview (12/20/2020): Added automatically from request for surgery [id number] Primary Osteoarthritis Knee Bilateral 03/26/2017 Resolved Problems Problem Noted Date Diagnosed Date Resolved Date Mitral Valve Prolapse 12/19/20202020 Encounter For Preprocedural Laboratory Examination (COVID-19) 10/16/2020 12/19/2020 Overview (10/16/2020): Added automatically from request for surgery [id number] Contact With And (Suspected) Exposure To COVID-19 10/16/2020 12/19/2020 Overview (10/16/2020): Added automatically from request for surgery [id number] Pain Knee Bilateral 02/06/2017 12/20/19 21 Encounters Date Type Department Care Team Description 02/19/2024 Clinical Communication Department of Dermatology in [address] [address] Elsewhere, Pcp from Last 3 [...] How often do you attend chur or yazdanism services? 1 to 4 times per year 07/13/2021 Do you belong to any clubs o r organizations such as voodoo groups, unions, fraternal or athletic groups, or [...] and heating? Not hard at all 03/14/2023 [facility] - Occupational Stress Questionnaire Answer Date [...] your living situation today? I have a [facility] place to live 03/14/2023 Education [...] Fall Risk Screen (Annual) 06/30/2023 COVID-19 Vaccine (2023-2 5 season) 2024 05/11/2023, 02/12/2023, 03/29/2022, Additional history exists Influenza Vaccine (#1) 2024 , 05/20/2022, 04/13/2021, Additional history exists DTaP,Tdap,and Td Vaccines (2 - Td or Tdap) 11/16/2025 11/17/2015, 08/08/2005 Zoster Vaccines Completed 04/13/2019, 01/28, 09/30/2014 Pneumococcal vaccine (65+ years) Completed 10/27/19, 07/13/2019 Medical Devices Implanted Type Area Supervisor Dehydrogenation Device Identifier Shelf Expiration Date Model / Serial / Lot Cmnt Bn Full Dose 40gm Simplex - [id number] Implanted:Qty : 1 on 12/21/2020 by Matthew Wright M.D. at [facility] Bone Cement Right: Knee [place] 01/27/2022 6191 1 / / [id number] Cmnt Bn Half Dose 20gm Simplex - [id number] Implanted:Qty : 1 on 12/21/2020 by Matthew Wright M.D. at [facility] Bone Cement Right: Knee [place] 06/29/2022 6188 1 / / [id number] Cmnt Bn Smp 20gm - [id number] Implanted:Qty : 1 on 04/12/2021 by Matthew Wright M.D. at [facility] Bone Cement Left: Knee [place] 6188 1 / / Cmnt Bn Smp 40gm - [id number] Implanted:Qty : 1 on 04/12/2021 by Matthew Wright M.D. at [facility] Bone Cement Left: Knee [place] 6191 1 / / Ibalance Tka, Femoral Implant, Ps, Cemented, Right Implanted:Qty : 1 on 12/21/2020 by Matthew Wright M.D. at [facility] Knee Implant Right: Knee [place] 01/28/2024 AR-526-6R / / [id number] Ibalance Tka, Tibial Tray, Modular Implanted:Qty : 1 on 12/21/2020 by Matthew Wright M.D. at [facility] [place]plant Right: Knee [place] 05/29/2025 AR-513-T4 / / [id number] Ibalance Tka, Tibial Bearing Implant, Ps, Vit E Implanted:Qty : 1 on 12/21/2020 by Matthew Wright M.D. at [facility] [place] Knee Implant Right: Knee [place] 12/27/2024 AR-523-B4 10 / / [id number] Ibalance Tibial Insert Ps Vit. E Sz 5 9mm Implanted:Qty : 1 on 04/12/2021 by Matthew Wright M.D. at [facility] Knee Implant Left: Knee [place] [id number] 11/27/2024 AR-523-B5 09 / / [id number] Ibalance Femur Ps Sz 7 Left Implanted:Qty : 1 on 04/12/2021 by Matthew Wright M.D. at [facility] Knee Implant Left: Knee [place] [id number] 04/29/2024 ELODIA-526-7L / / [id number] Ibalance Tibial Tray Modular Sz 5 Implanted:Qty : 1 on 04/12/2021 by Matthew Wright M.D. at [facility] Knee Implant Left: Knee Arthrex [id number] AR-513-T5 / / Advance Directives For more information, please contact: [phone] * Full Code (Latest Code Status on File) Date Activated Date Inactivated Comments 04/12/2021 1:12 PM 04/13/2021 1:32 PM Question Answer Comments Full Code: Discussed * Full Code Date Activated Date Inactivated Comments 12/21/2020 3:06 PM 12/22/2020 3:11 PM Question Answer Comments Full Code: Discussed Care Teams Rattan Worker Relationship Specialty Start Date End Date Elsewhere, Pcp PCP - General Family Medicine 12/18/20
--- NOTE | 2024-03-29 11:45 | CRLHL7_ITS ---
For Patients: As a result of the Cures Act, medical imaging exams and procedure reports are released immediately into your electronic medical record. You may view this report before your referring provider. If you have questions, please contact your health care provider. Indication: Gout Technique: Left elbow 2 views Comparison: None Findings: Focal soft tissue calcification noted adjacent to the undersurface of the olecranon measuring 1.9 cm. Small density adjacent to the lateral humeral epicondyle. No joint effusion or fracture. Impression: Calcified soft tissue tophus. Mild chronic lateral epicondylitis. No osseous erosions or joint effusion. Dictated by Fredrick Bourgeois MD @ 03/29/2024 12:34:04 PM (Electronically Signed)
--- NOTE | 2024-03-29 12:00 | CRLHL7_ITS ---
For Patients: As a result of the Cures Act, medical imaging exams and procedure reports are released immediately into your electronic medical record. You may view this report before your referring provider. If you have questions, please contact your health care provider. Indication: Gout Technique: Right elbow 2 views Comparison: None Findings: No joint effusion. No fracture. No erosive change. Impression: No erosive arthropathy or synovitis. No soft tissue calcifications. Dictated by Fredrick Bourgeois MD @ 03/29/2024 12:34:59 PM (Electronically Signed)
--- NOTE | 2024-03-29 12:15 | CRLHL7_ITS ---
For Patients: As a result of the Century Cures Act, medical imaging exams and procedure reports are released immediately into your electronic medical record. You may view this report before your referring provider. If you have questions, please contact your health care provider. Indication: Gout Technique: Right hand 3 views. Comparison: None Findings: Multifocal soft tissue densities adjacent to the distal phalanx of the long finger measuring up to 5 millimeters. Chronic ossicles adjacent to the 1st carpometacarpal joint, little finger distal interphalangeal joint and index finger distal interphalangeal joint. Chronic density adjacent to the proximal phalanx of the thumb. Mild multifocal spurring. Incidental cyst in the scaphoid. Impression: Multifocal soft tissue foci adjacent to the distal phalanx of the long finger. No erosive changes. Dictated by Fredrick Bourgeois MD @ 03/29/2024 12:36:27 PM (Electronically Signed)
--- NOTE | 2024-03-29 12:30 | CRLHL7_ITS ---
For Patients: As a result of the Century Cures Act, medical imaging exams and procedure reports are released immediately into your electronic medical record. You may view this report before your referring provider. If you have questions, please contact your health care provider. Indication: Gout Technique: Left hand 3 views. Comparison: None Findings: Small chronic ossicles are present adjacent to the 1st carpometacarpal joint and 1st MCP joint. Additional chronic ossicle adjacent to the little finger proximal interphalangeal joint and the index finger distal interphalangeal joint. Small ossicle adjacent to the ring finger proximal interphalangeal joint. No erosive change. No soft tissue densities. No fracture. Impression: No soft tissue foci. No erosive change. Multifocal spurring. Dictated by Fredrick Bourgeois MD @ 03/29/2024 12:37:33 PM (Electronically Signed)
== END 2024-03-29 11:35 | disposition home or self-care (01) ==
LOC: RAD 11:35
PROVIDERS: PCP Internal Medicine; Visit Provider Dermatology
DX: M10.00 Idiopathic gout, unspecified site (principal); M77.12 Lateral epicondylitis, left elbow
CPT/HCPCS: 73070; 73130

== ENCOUNTER 2024-03-30 13:55 | Outpatient (CLI) | payer MEDICARE, BC, SELFPAY ==
--- NOTE | 2024-03-30 14:00 | CRLHL7_ITS ---
For Patients: As a result of the Century Cures Act, medical imaging exams and procedure reports are released immediately into your electronic medical record. You may view this report before your referring provider. If you have questions, please contact your health care provider. Indication: Subcutaneous mass Technique: Grayscale and color Doppler ultrasound of the left elbow soft tissues performed about the olecranon. Comparison: X-rays 03/29/2024 Findings: There is a hyperechoic and partially shadowing mass within the subcutaneous fat of the left elbow measuring 1.6 x 0.6 x 1.7 cm corresponding to an area of dense calcification on x-ray. No fluid collection or abscess. 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 Dictated by Fredrick Bourgeois MD @ 03/30/2024 10:33:04 PM (Electronically Signed)
--- OUTSIDE RECORDS SUMMARY | 2024-03-30 14:01 | XMS_ITS | Clinical Summary ---
Author Organization [facility] Address [address] [place] [address] Care Team Providers Care Healthcare Consultant Name Role Phone Elsewhere, Pcp Primary Care Provider Unavailabl e Source Comments Patient records contain information from all sites at [facility]. For routine questions regarding patient records, call [phone] during business hours, M-F 8:00 AM - 5:00 PM Central Time. Record requests for emergency care only can be directed to [phone] at any time.[facility] Allergies No known active allergies Medications [...] by mouth every morning. 10/28/2016 Active vitamins A,C,N-jknj-douxmn (PRESERVISION AREDS) 7,160 Units-113 mg-100 Units per [...] (02/01/2021): Added automatically from request for surgery [id number] Hypertension Essential Primary 12/19/2020 Hyperlipidemia 12/19/2020 Murmur Heart 12/19/2020 Osteoporosis 12/19/2020 Preoperative Exam 10/16/2020 Overview (10/16/2020): Added automatically from request for surgery [id number] Pain Knee Bilateral 10/16/2020 Overview (12/20/2020): Added automatically from request for surgery [id number] Encounter For Preprocedural Laboratory Examination (COVID-19) 10/16/2020 Overview (12/20/2020): Added automatically from request for surgery [id number] Contact With And (Suspected) Exposure To COVID-1 9 10/16/2020 Overview (12/20/2020): Added automatically from request for surgery [id number] Primary Osteoarthritis Knee Bilateral 03/26/2017 Resolved Problems Problem Noted Date Diagnosed Date Resolved Date Mitral Valve Prolapse 12/19/20202020 Encounter For Preprocedural Laboratory Examination (COVID-19) 10/16/2020 12/19/2020 Overview (10/16/2020): Added automatically from request for surgery [id number] Contact With And (Suspected) Exposure To COVID-19 10/16/2020 12/19/2020 Overview (10/16/2020): Added automatically from request for surgery [id number] Pain Knee Bilateral 02/06/2017 12/20/19 21 Encounters Date Type Department Care Team Description 02/19/2024 Clinical Communication Department of Dermatology in [address] [phone] Elsewhere, Pcp from Last 3 [...] How often do you attend chur or anglican services? 1 to 4 times [...] and heating? Not hard at all 03/14/2023 [facility] - Occupational Stress Questionnaire Answer Date [...] your living situation today? I have a [facility] place to live 03/14/2023 Education Answer [...] 10/27/19, 07/13/2019 Medical Devices Implanted Type Area Travel Cota Device Identifier Shelf Expiration Date Model / Serial / Lot Cmnt Bn Full Dose 40gm Simplex - [id number] Implanted:Qty : 1 on 12/21/2020 by Matthew Wright M.D. at [facility] Bone Cement Right: Knee [place] 01/27/2022 6191 1 / / [id number] Cmnt Bn Half Dose 20gm Simplex - [id number] Implanted:Qty : 1 on 12/21/2020 by Matthew Wright M.D. at [facility] Bone Cement Right: Knee [place] 06/29/2022 6188 1 / / [id number] Cmnt Bn Smp 20gm - [id number] Implanted:Qty : 1 on 04/12/2021 by Matthew Wright M.D. at [facility] Bone Cement Left: Knee [place] 6188 1 / / Cmnt Bn Smp 40gm - [id number] Implanted:Qty : 1 on 04/12/2021 by Matthew Wright M.D. at [facility] Bone Cement Left: Knee [place] 6191 1 / / Ibalance Tka, Femoral Implant, Ps, Cemented, Right Implanted:Qty : 1 on 12/21/2020 by Matthew Wright M.D. at [facility] Knee Implant Right: Knee [place] 01/28/2024 AR-526-6R / / [id number] Ibalance Tka, Tibial Tray, Modular Implanted:Qty : 1 on 12/21/2020 by Matthew [facility] M.D. at [facility] [place] Right: Knee [place] 05/29/2025 AR-513-T4 / / [id number] Ibalance Tka, Tibial Bearing Implant, Ps, Vit E Implanted:Qty : 1 on 12/21/2020 by Matthew Wright M.D. at [facility] Right: Knee [place] 12/27/2024 AR-523-B4 10 / / [id number] Ibalance Tibial Insert Ps Vit. E Sz 5 9mm Implanted:Qty : 1 on 04/12/2021 by Matthew Wright M.D. at [facility] Knee Implant Left: Knee [place] [id number] 11/27/2024 AR-523-B5 09 / / [id number] Ibalance Femur Ps Sz 7 Left Implanted:Qty : 1 on 04/12/2021 by aMtthew Wright M.D. at [facility] Knee Implant Left: Knee Arthrex [id number] 04/29/2024 ELODIA-526-7L / / [id number] Ibalance Tibial Tray Modular Sz 5 Implanted:Qty : 1 on 04/12/2021 by Matthew Wright M.D. at [facility] Knee Implant Left: Knee Arthrex [id number] AR-513-T5 / / Advance Directives For more information, please contact: [phone] * Full Code (Latest Code Status on File) Date Activated Date Inactivated Comments 04/12/2021 1:12 PM 04/13/2021 1:32 PM Question Answer Comments Full Code: Discussed * Full Code Date Activated Date Inactivated Comments 12/21/2020 3:06 PM 12/22/2020 3:11 PM Question Answer Comments Full Code: Discussed Care Teams Healthcare Consultant Relationship Specialty Start Date End Date Elsewhere, Pcp PCP - General Family Medicine 12/18/20
--- OUTSIDE RECORDS SUMMARY | 2024-03-30 14:01 | XMS_ITS | Referral Summary ---
Author Organization [facility] Address [address] [place] [address] Care Team Providers Care Manager Diabetes Name Role Phone Elsewhere, Pcp Primary Care Provider Unavailabl e Source Comments Patient records contain information from all sites at [facility]. For routine questions regarding patient records, call [phone] during business hours, M-F 8:00 AM - 5:00 PM Central Time. Record requests for emergency care only can be directed to [phone] at any time.[facility] Encounters Date Type Department Care Team Description 02/19/2024 Clinical Communication Department of Dermatology in [address] [address] Elsewhere, Pcp from Last 3 [...] by mouth every morning. 10/28/2016 Active vitamins A,C,E-tfic-xnxvgu (PRESERVISION AREDS) 7,160 Units-113 mg-100 Units per [...] (02/01/2021): Added automatically from request for surgery [id number] Hypertension Essential Primary 12/19/2020 Hyperlipidemia 12/19/2020 Murmur Heart 12/19/2020 Osteoporosis 12/19/2020 Preoperative Exam 10/16/2020 Overview (10/16/2020): Added automatically from request for surgery [id number] Pain Knee Bilateral 10/16/2020 Overview (12/20/2020): Added automatically from request for surgery [id number] Encounter For Preprocedural Laboratory Examination (COVID-19) 10/16/2020 Overview (12/20/2020): Added automatically from request for surgery [id number] Contact With And (Suspected) Exposure To COVID-1 9 10/16/2020 Overview (12/20/2020): Added automatically from request for surgery [id number] Primary Osteoarthritis Knee Bilateral 03/26/2017 Resolved Problems Problem Noted Date Diagnosed Date Resolved Date Mitral Valve Prolapse 12/19/20202020 Encounter For Preprocedural Laboratory Examination (COVID-19) 10/16/2020 12/19/2020 Overview (10/16/2020): Added automatically from request for surgery [id number] Contact With And (Suspected) Exposure To COVID-19 10/16/2020 12/19/2020 Overview (10/16/2020): Added automatically from request for surgery [id number] Pain Knee Bilateral 02/06/2017 12/20/19 21 Immunizations [...] often do you attend chur ch or mu-ism services? 1 to 4 times per year [...] and heating? Not hard at all 03/14/2023 [facility] Occupat ional Health - Occupational Stress [...] on file Medical Devices Implanted Type Area Ink Maker Device Identifier Shelf Expiration Date Model / Serial / Lot Cmnt Bn Full Dose 40gm Simplex - [id number] Implanted:Qty : 1 on 12/21/2020 by [facility] Right: Knee [place] 01/27/2022 6191-1-00 1 / / [id number] Cmnt Bn Half Dose 20gm Simplex - [id number] Implanted:Qty : 1 on 12/21/2020 by Matthew [facility] M[facility] Right: Knee Perry 06/29/2022 6188-1-00 1 / / [id number] Cmnt Bn Smp 20gm - [id number] Implanted:Qty : 1 on 04/12/2021 by Matthew Wright M.D. at [facility] Bone Cement Left: Knee Marilee 6188-1-00 1 / / [facility] 40gm - [id number] Implanted:Qty : 1 on 04/12/2021 by Matthew Wright M.D. at [facility] Bone Cement Left: Knee [place] 6191-1-00 1 / / Ibalance Tka, Femoral Implant, Ps, Cemented, Right Implanted:Qty : 1 on 12/21/2020 by Matthew Wright M.D. at [facility] Knee Implant Right: Knee Arthrex 01/28/2024 AR-526-6R / / [id number] Ibalance Tka, Tibial Tray, Modular Implanted:Qty : 1 on 12/21/2020 by Matthew Wright M.D. at [facility] Knee Implant Right: Knee Arthrex 05/29/2025 AR-513-T4 / / [id number] Ibalance Tka, Tibial Bearing Implant, Ps, Vit E Implanted:Qty : 1 on 12/21/2020 by Matthew Wright M.D. at [facility] Knee Implant Right: Knee Arthrex 12/27/2024 AR-523-B4 / [id number] Ibalance Tibial Insert Ps Vit. E Sz 5 9mm Implanted:Qty : 1 on 04/12/2021 by Matthew Wright M.D. at [facility] Knee Implant Left: Knee Arthrex [id number] 11/27/2024 AR-523-B5 / [id number] Ibalance Femur Ps Sz 7 Left Implanted:Qty : 1 on 04/12/2021 by Matthew Wright M.D. at [facility] Knee Implant Left: Knee Arthrex [id number] 04/29/2024 AR-526-7L / / [id number] Ibalance Tibial Tray Modular Sz 5 Implanted:Qty : 1 on 04/12/2021 by Matthew Wright M.D. at [facility] Knee Implant Left: Knee Arthrex [id number] AR-513-T5 / / Advance Directives For more information, please contact: [phone] * Full Code (Latest Code Status on File) Date Activated Date Inactivated Comments 04/12/2021 1:12 PM 04/13/2021 1:32 PM Question Answer Comments Full Code: Discussed * Full Code Date Activated Date Inactivated Comments 12/21/2020 3:06 PM 12/22/2020 3:11 PM Question Answer Comments Full Code: Discussed Care Teams Manager Diabetes Relationship Specialty Start Date End Date Elsewhere, Pcp PCP - General Family Medicine 12/18/20
--- OUTSIDE RECORDS SUMMARY | 2024-03-30 14:01 | XMS_ITS ---
Author Organization [facility] Address [address] [place] [address] Care Team Providers Care National Van Owner Operator Name Role Phone Unavailable Unavailable Unavailable Surgery Details Not on file Complications Check Surgery Details section. Procedure Estimated Blood Loss Check Surgery Details section. Procedure Findings Check Surgery Details section. Procedure Specimens Taken Check Surgery Details section.
--- OUTSIDE RECORDS SUMMARY | 2024-03-30 14:01 | XMS_ITS | Encounter Summary ---
Author Organization [facility] Address [address] [place] [address] Care Team Providers Care Flat Finisher Name Role Phone Elsewhere, Pcp Primary Care Provider Unavailabl e Encounter Details Date Type Department Care Team (Late st Contact Info) Description 02/19/2024 Clinical Communication Department of Dermatology in [address] [phone] Elsewhere, Pcp Social History Tobacco [...] any clubs o r organizations such as islam groups, unions, fraternal or athletic groups, or [...] and heating? Not hard at all 03/14/2023 [facility] Occupat ional Health - Occupational [...] your living situation today? I have a [facility] place to live 03/14/2023 Education [...] on filedocumented in this encounter Care Teams Flat Finisher Relationship Specialty Start Date End Date Elsewhere, Pcp PCP - General Family Medicine 12/18/20 documented as of this encounter
== END 2024-03-30 13:56 | disposition home or self-care (01) ==
LOC: US 13:56
PROVIDERS: PCP Internal Medicine; Visit Provider Dermatology
DX: R22.32 Localized swelling, mass and lump, left upper limb (principal)
CPT/HCPCS: 76882

== ENCOUNTER 2024-04-06 17:45 | Outpatient (REF) | payer MEDICARE, BC, SELFPAY ==
--- OUTSIDE RECORDS SUMMARY | 2024-04-06 17:49 | XMS_ITS | Clinical Summary ---
Author Organization [facility] Address [address] [place] [address] Care Team Providers Care Strip Winder Name Role Phone Elsewhere, Pcp Primary Care Provider Unavailabl e Source Comments Patient records contain information from all sites at [facility]. For routine questions regarding patient records, call [phone] during business hours, M-F 8:00 AM - 5:00 PM Central Time. Record requests for emergency care only can be directed to [phone] at any time.[facility] Allergies No known active allergies Medications Medication [...] by mouth every morning. 10/28/2016 Active vitamins A,C,G-ygpw-qjrbqc (PRESERVISION AREDS) 7,160 Units-113 mg-100 Units per [...] (02/01/2021): Added automatically from request for surgery [id number] Hypertension Essential Primary 12/19/2020 Hyperlipidemia 12/19/2020 Murmur Heart 12/19/2020 Osteoporosis 12/19/2020 Preoperative Exam 10/16/2020 Overview (10/16/2020): Added automatically from request for surgery [id number] Pain Knee Bilateral 10/16/2020 Overview (12/20/2020): Added automatically from request for surgery [id number] Encounter For Preprocedural Laboratory Examination (COVID-19) 10/16/2020 Overview (12/20/2020): Added automatically from request for surgery [id number] Contact With And (Suspected) Exposure To COVID-1 9 10/16/2020 Overview (12/20/2020): Added automatically from request for surgery [id number] Primary Osteoarthritis Knee Bilateral 03/26/2017 Resolved Problems Problem Noted Date Diagnosed Date Resolved Date Mitral Valve Prolapse 12/19/20202020 Encounter For Preprocedural Laboratory Examination (COVID-19) 10/16/2020 12/19/2020 Overview (10/16/2020): Added automatically from request for surgery [id number] Contact With And (Suspected) Exposure To COVID-19 10/16/2020 12/19/2020 Overview (10/16/2020): Added automatically from request for surgery [id number] Pain Knee Bilateral 02/06/2017 12/20/19 21 Encounters Date Type Department Care Team Description 02/19/2024 Clinical Communication Department of Dermatology in [address] [phone] Elsewhere, Pcp from Last 3 [...] How often do you attend chur or cheondoism services? 1 to 4 times per year 07/13/2021 Do you belong to any clubs o r organizations such as catholic groups, unions, fraternal or athletic groups, or [...] and heating? Not hard at all 03/14/2023 [facility] - [facility]ational [facility] Questionnaire Answer Date [...] your living situation today? I have a [facility] place to live 03/14/2023 Education [...] 10/27/19, 07/13/2019 Medical Devices Implanted Type Area International Recruiter Device Identifier Shelf Expiration Date Model / Serial / Lot Cmnt Bn Full Dose 40gm Simplex - [id number] Implanted:Qty : 1 on 12/21/2020 by Matthew Wright M.D. at [facility] Bone Cement Right: Knee [place] 01/27/2022 6191 1 / / [id number] Cmnt Bn Half Dose 20gm Simplex - [id number] Implanted:Qty : 1 on 12/21/2020 by Matthew Wright M.D. at [facility] Bone Cement Right: Knee Marilee 06/29/2022 6188 1 / / [id number] Cmnt Bn Smp 20gm - [id number] Implanted:Qty : 1 on 04/12/2021 by Matthew Wright M.D. at [facility] Bone Cement Left: Knee Marilee 6188 1 / / Cmnt Bn Smp 40gm - [id number] Implanted:Qty : 1 on 04/12/2021 by Matthew Wright M.D. at [facility] Bone Cement Left: Knee Marilee 6191 1 / / Ibalance Tka, Femoral Implant, Ps, Cemented, Right Implanted:Qty : 1 on 12/21/2020 by Matthew Wright M.D. at [facility] Knee Implant Right: Knee Arthrex 01/28/2024 AR-526-6R / / [id number] Ibalance Tka, Tibial Tray, Modular Implanted:Qty : 1 on 12/21/2020 by Matthew Wright M.D. at [facility] Knee Implant Right: Knee Arthrex 05/29/2025 AR-513-T4 / / [id number] Ibalance Tka, Tibial Bearing Implant, Ps, Vit E Implanted:Qty : 1 on 12/21/2020 by Matthew Wright M.D. at [facility] Knee Implant Right: Knee Arthrex 12/27/2024 AR-523-B4 10 / / [id number] Ibalance Tibial Insert Ps Vit. E Sz 5 9mm Implanted:Qty : 1 on 04/12/2021 by Matthew Wright M.D. at [facility] Knee Implant Left: Knee Arthrex [id number] 11/27/2024 AR-523-B5 09 / / [id number] Ibalance Femur Ps Sz 7 Left Implanted:Qty : 1 on 04/12/2021 by Matthew Wright M.D. at [facility] Knee Implant Left: Knee Arthrex [id number] 04/29/2024 ELODIA-526-7L / / [id number] Ibalance Tibial Tray Modular Sz 5 Implanted:Qty : 1 on 04/12/2021 by Matthew Wright M.D. at [facility] Knee Implant Left: Knee Arthrex [id number] AR-513-T5 / / Advance Directives For more information, please contact: [phone] * Full Code (Latest Code Status on File) Date Activated Date Inactivated Comments 04/12/2021 1:12 PM 04/13/2021 1:32 PM Question Answer Comments Full Code: Discussed * Full Code Date Activated Date Inactivated Comments 12/21/2020 3:06 PM 12/22/2020 3:11 PM Question Answer Comments Full Code: Discussed Care Teams Strip Winder Relationship Specialty Start Date End Date Elsewhere, Pcp PCP - General Family Medicine 12/18/20
--- OUTSIDE RECORDS SUMMARY | 2024-04-06 17:50 | XMS_ITS ---
Author Organization [facility] Address [address] [place] [address] Care Team Providers Care Nail Making Machine Setter Name Role Phone Unavailable Unavailable Unavailable Surgery Details Not on file Complications Check Surgery Details section. Procedure Estimated Blood Loss Check Surgery Details section. Procedure Findings Check Surgery Details section. Procedure Specimens Taken Check Surgery Details section.
--- OUTSIDE RECORDS SUMMARY | 2024-04-06 17:50 | XMS_ITS | Referral Summary ---
Author Organization [facility] Address [address] [place] [address] Care Team Providers Care Counter Tacker Name Role Phone Elsewhere, Pcp Primary Care Provider Unavailabl e Source Comments Patient records contain information from all sites at [facility]. For routine questions regarding patient records, call [phone] during business hours, M-F 8:00 AM - 5:00 PM Central Time. Record requests for emergency care only can be directed to [phone] at any time.[facility] Encounters Date Type Department Care Team Description 02/19/2024 Clinical Communication Department of Dermatology in [address] [address] Elsewhere, Pcp from Last 3 [...] by mouth every morning. 10/28/2016 Active vitamins A,C,M-dvwj-uqgdcd (PRESERVISION AREDS) 7,160 Units-113 mg-100 Units per [...] (02/01/2021): Added automatically from request for surgery [id number] Hypertension Essential Primary 12/19/2020 Hyperlipidemia 12/19/2020 Murmur Heart 12/19/2020 Osteoporosis 12/19/2020 Preoperative Exam 10/16/2020 Overview (10/16/2020): Added automatically from request for surgery [id number] Pain Knee Bilateral 10/16/2020 Overview (12/20/2020): Added automatically from request for surgery [id number] Encounter For Preprocedural Laboratory Examination (COVID-19) 10/16/2020 Overview (12/20/2020): Added automatically from request for surgery [id number] Contact With And (Suspected) Exposure To COVID-1 9 10/16/2020 Overview (12/20/2020): Added automatically from request for surgery [id number] Primary Osteoarthritis Knee Bilateral 03/26/2017 Resolved Problems Problem Noted Date Diagnosed Date Resolved Date Mitral Valve Prolapse 12/19/20202020 Encounter For Preprocedural Laboratory Examination (COVID-19) 10/16/2020 12/19/2020 Overview (10/16/2020): Added automatically from request for surgery [id number] Contact With And (Suspected) Exposure To COVID-19 10/16/2020 12/19/2020 Overview (10/16/2020): Added automatically from request for surgery [id number] Pain Knee Bilateral 02/06/2017 12/20/19 21 Immunizations [...] often do you attend chur ch or buddhism services? 1 to 4 times per year [...] and heating? Not hard at all 03/14/2023 [facility] [place] of Occupat ional Health - Occupational Stress [...] on file Medical Devices Implanted Type Area Integrity Consultant Device Identifier Shelf Expiration Date Model / Serial / Lot Cmnt Bn Full Dose 40gm Simplex - [id number] Implanted:Qty : 1 on 12/21/2020 by [facility] Right: Knee [place] 01/27/2022 6191-1-00 1 / / [id number] Cmnt Bn Half Dose 20gm Simplex - [id number] Implanted:Qty : 1 on 12/21/2020 by Matthew Wright M.D. at [facility] Bone Cement Right: Knee [place] 06/29/2022 6188-1-00 1 / / [id number] Cmnt Bn Smp 20gm - [id number] Implanted:Qty : 1 on 04/12/2021 by Matthew Wright M.D. at [facility] Bone Cement Left: Knee Marilee 6188-1-00 1 / / [facility] 40gm - [id number] Implanted:Qty : 1 on 04/12/2021 by Matthew Wright M.D. at [facility] Bone Cement Left: Knee [place] 6191-1-00 1 / / Ibalance Tka, Femoral Implant, Ps, Cemented, Right Implanted:Qty : 1 on 12/21/2020 by Matthew Wright M.D. at [facility] Knee Implant Right: Knee Arthrex 01/28/2024 AR-526-6R / / [id number] Ibalance Tka, Tibial Tray, Modular Implanted:Qty : 1 on 12/21/2020 by Matthew Wright M.D. at [facility] Knee Implant Right: Knee Arthrex 05/29/2025 AR-513-T4 / / [id number] Ibalance Tka, Tibial Bearing Implant, Ps, Vit E Implanted:Qty : 1 on 12/21/2020 by Matthew Wright M.D. at [facility] Knee Implant Right: Knee Arthrex 12/27/2024 AR-523-B4 / [id number] Ibalance Tibial Insert Ps Vit. E Sz 5 9mm Implanted:Qty : 1 on 04/12/2021 by Matthew Wright M.D. at [facility] Knee Implant Left: Knee Arthrex [id number] 11/27/2024 AR-523-B5 / [id number] Ibalance Femur Ps Sz 7 Left Implanted:Qty : 1 on 04/12/2021 by Matthew Wright M.D. at [facility] Knee Implant Left: Knee Arthrex [id number] 04/29/2024 AR-526-7L / / [id number] Ibalance Tibial Tray Modular Sz 5 Implanted:Qty : 1 on 04/12/2021 by Matthew Wright M.D. at [facility] Knee Implant Left: Knee Arthrex [id number] AR-513-T5 / / Advance Directives For more information, please contact: [phone] * Full Code (Latest Code Status on File) Date Activated Date Inactivated Comments 04/12/2021 1:12 PM 04/13/2021 1:32 PM Question Answer Comments Full Code: Discussed * Full Code Date Activated Date Inactivated Comments 12/21/2020 3:06 PM 12/22/2020 3:11 PM Question Answer Comments Full Code: Discussed Care Teams Counter Tacker Relationship Specialty Start Date End Date Elsewhere, Pcp PCP - General Family Medicine 12/18/20
--- OUTSIDE RECORDS SUMMARY | 2024-04-06 17:50 | XMS_ITS | Encounter Summary ---
Author Organization [facility] Address [address] [place] [address] Care Team Providers Care Damper Fitter Name Role Phone Elsewhere, Pcp Primary Care Provider Unavailabl e Encounter Details Date Type Department Care Team (Late st Contact Info) Description 02/19/2024 Clinical Communication Department of Dermatology in [address] [phone] Elsewhere, Pcp Social History Tobacco [...] often do you attend chur ch or mosque services? 1 to 4 times per year 07/13/2021 Do you belong to any clubs o r organizations such as mandaen groups, unions, fraternal or athletic groups, or [...] and heating? Not hard at all 03/14/2023 [facility] of Occupat ional Health - Occupational Stress [...] your living situation today? I have a [facility] place to live 03/14/2023 Education [...] on filedocumented in this encounter Care Teams Damper Fitter Relationship Specialty Start Date End Date Elsewhere, Pcp PCP - General Family Medicine 12/18/20 documented as of this encounter
[2024-04-06 23:34] LABS: Creatine Kinase* 79 U/L (41-117); Uric Acid* 5.4 mg/dL (2.2-8.4)
[2024-04-08 23:55] LABS: Anti-Nuclear Ab(ANA)IgG ELISA Detected (None Detected)
[2024-04-10 00:35] LABS: ANA Pattern Nucleolar; Antinuclear AntibodyHEp-2 Detected (<1:80)
== END 2024-04-06 17:46 | disposition home or self-care (01) ==
LOC: NPINS 17:45
PROVIDERS: PCP Internal Medicine; Visit Provider Dermatology
DX: R22.9 Localized swelling, mass and lump, unspecified (principal)
CPT/HCPCS: 82550; 83516; 84550; 86038; 86039; 86235

== ENCOUNTER 2025-02-09 08:33 | Outpatient (CLI) | payer MEDICARE, SELFPAY | END 2025-02-09 08:34 | disposition home or self-care (01) | LOC: NFLDREF 02-13 14:38 | PROVIDERS: PCP Internal Medicine; Referring Provider Internal Medicine; Visit Provider Internal Medicine | DX: E78.5 Hyperlipidemia, unspecified (principal); R73.03 Prediabetes; M81.0 Age-related osteoporosis without current pathological fracture | CPT/HCPCS: 80061; 82306; 82310; 82947 ==

== ENCOUNTER 2025-03-29 12:44 | Outpatient (CLI) | payer MEDICARE, SELFPAY ==
--- NOTE | 2025-03-29 13:00 | CRLHL7_ITS ---
For Patients: As a result of the Century Cures Act, medical imaging exams and procedure reports are released immediately into your electronic medical record. You may view this report before your referring provider. If you have questions, please contact your health care provider. INDICATION: BILATERAL SCREENING MAMMOGRAM, ASYMPTOMATIC 70 Y/O FEMALE COMPARISON: 03/19/2024, 02/13/2023, 01/24/2022 TECHNIQUE: Digital mammogram in CC and MLO projections including computer-aided detection (CAD) and tomosynthesis. BREAST COMPOSITION: The breasts are heterogeneously dense, which may obscure small masses. FINDINGS: No suspicious findings. ASSESSMENT: BI-RADS 2 Benign RECOMMENDATION: Annual screening mammogram. A lay language report of this examination will be provided to the patient. Dictated by: Fredrick Bourgeois MD @ 03/30/2025 11:04:10 (Electronically Signed)
== END 2025-03-29 12:45 | disposition home or self-care (01) ==
LOC: MAMMO 12:44
PROVIDERS: PCP Internal Medicine; Visit Provider Internal Medicine
DX: Z12.31 Encounter for screening mammogram for malignant neoplasm of breast (principal); R92.333 Mammographic heterogeneous density, bilateral breasts
CPT/HCPCS: 77063; 77067